=== PATIENT | male | born 1945 | race Caucasian/White ===

== ENCOUNTER → 2024-02-16 | Outpatient (CLI) | payer MEDICARE, SELFPAY ==
[2024-02-16 12:27] LABS: Basophils % (Auto) 0 % (0-2.5); Eosinophils % (Auto) 0 % (0-10); Hematocrit 36.5 % (41.0-53.0); Hemoglobin 12.4 g/dL (13.5-16.0); Immature Granulocytes % (Auto) 0 % (0-0); Immature Granulocytes Auto 0.02 Thou/mm3 (0.00-0.00); Lymphocytes # (Auto) 0.8 Thou/mm3 (1.0-4.8); Lymphocytes % (Auto) 11 % (10-50); Mean Corpuscular Hemoglobin 30.9 pg (25.0-35.0); Mean Corpuscular Volume 91 fL (80-100); Monocytes # (Auto) 0.3 Thou/mm3 (0.0-0.8); Monocytes % (Auto) 4 % (0-12); Neutrophils # (Auto) 5.8 Thou/mm3 (1.8-7.7); Neutrophils % (Auto) 84 % (37-80); Nucleated Red Blood Cell % 0 /100 WBC (0); Platelet Count 155 Thou/mm3 (140-440); RDW Standard Deviation 48.3 fL (35.1-43.9); Red Blood Count 4.01 Miln/mm3 (4.50-5.90); White Blood Count 6.9 Thou/mm3 (3.8-10.6)
[2024-02-16 12:38] LABS: Glucose Estimated Average 140 mg/dL (80-131); Hemoglobin A1C 6.5 % Hgb (4.8-6.0)
[2024-02-16 12:41] LABS: Alanine Aminotransferase 277 U/L (10-49); Alkaline Phosphatase 240 U/L (46-116); Anion Gap 6 (7-16); Aspartate Amino Transferase 50 U/L (0-34); BUN/Creatinine Ratio 17 Ratio (12-20); Bilirubin,Direct 0.6 mg/dL (0.0-0.3); Blood Urea Nitrogen 24 mg/dL (9-23); Calcium 8.9 mg/dL (8.3-10.6); Carbon Dioxide 25.9 mMol/L (20.0-31.0); Cardiac Risk Estimate 4.3 RATIO (4.0-6.7); Chloride 105 mMol/L (98-107); Cholesterol 137 mg/dL (132-200); Creatinine (Component) 1.4 mg/dL (0.6-1.3); Glucose 209 mg/dL (74-106); HDL Cholesterol 32 mg/dL (40-60); LDL Cholesterol,Calculated 73 mg/dL (0-130); Osmolality,Calculated 283 (275-295); Potassium 4.7 mMol/L (3.4-5.1); Sodium 137 mMol/L (136-145); Total Protein 6.3 gm/dL (5.7-8.2); Triglycerides 162 mg/dL (30-150); eGFR 51 See Note
[2024-02-16 13:12] LABS: Creatinine MALB Rnd Ur 96 mg/dL (30-125); Microalbumin Creat Ratio 41 mg/gCrea (<30); Microalbumin, Random Urine 39 mg/L (0-300)
== END | disposition home or self-care (01) ==
PROVIDERS: PCP Family Medicine; Referring Provider Family Medicine; Visit Provider Family Medicine
DX: I10 Essential (primary) hypertension (principal); E11.65 Type 2 diabetes mellitus with hyperglycemia; M19.90 Unspecified osteoarthritis, unspecified site; E78.5 Hyperlipidemia, unspecified
CPT/HCPCS: 36415; 80048; 80061; 80076; 82043; 82570; 83036; 85025

== ENCOUNTER → 2024-03-28 | Outpatient (CLI) | payer MEDICARE, SELFPAY ==
--- NOTE | 2024-03-28 11:45 | XR_ITS ---
Examination: Abdomen sonogram, complete Date and time of exam: March 28, 2024 1021 hours INDICATIONS: Elevated liver function tests on laboratory examination performed one month ago. Technique: Multiple real-time grayscale transabdominal sonographic images of the abdomen have been obtained. Findings: Negative for gallstones Gallbladder wall thickened 0.5 cm Abnormally enlarged common bile duct 0.9 cm no stones Pancreatic head 2.1 cm Aorta not enlarged Liver 16.5 cm fatty infiltration smooth contour no focal liver lesions Normal hepatopedal portal venous flow Patent IVC Right kidney 11.7 x 5.4 x 5.2 cm cortex 1.3 cm Left kidney 10.5 x 4.2 x 4.5 cm cortex 1.8 cm Mild bilateral renal parenchymal scar formation Lower pole left renal calculus 9 mm No hydronephrosis Spleen 8.5 cm IMPRESSION: Abnormal thickening of the gallbladder wall with enlarged common bile duct Recommend MRCP follow-up to exclude stricture involving the common bile duct and to exclude cholecystitis 9 mm left renal calculus
== END | disposition home or self-care (01) ==
LOC: CDIM 09:59
PROVIDERS: PCP Family Medicine; Referring Provider Family Medicine; Visit Provider Family Medicine
DX: K82.8 Other specified diseases of gallbladder (principal); N20.0 Calculus of kidney; K83.8 Other specified diseases of biliary tract
CPT/HCPCS: 76700

== ENCOUNTER 2024-04-06 07:58 | Inpatient (IN) | payer MEDICARE, SELFPAY ==
[2024-04-06] VITALS (130 sets, daily range): BP systolic 53–183; BP diastolic 35–106; PULSE 57–112; RESP 0–38; TEMP 36.2–37.7; O2SAT 77–100; BMI 23.1
--- NOTE | 2024-04-06 08:00 | PC.NURSE ---
Patient brought in by son via private auto. Pt sitting in car AMS, lethargic. Pt was assisted to wheelchair by multiple nurses and taken directly to room 1. Per son at 0430 pt was up hallucinating thinking he was seeing cats. It progressively got worse according to son then he brought him here. 02 sats at 68% on RA. Placed on 15L oxymask at this time. Pt getting anxious. MD and multiple nurses at bedside. RT called.
--- NOTE | 2024-04-06 08:17 | XR_ITS ---
Examination: AP chest single view Technique one AP portable upright chest single view Exam date and time: April 06, 2024 at 0848 hrs. Indications: Sepsis today Findings: Comparison July 30, 2018 Findings: Extensive bilateral pneumonia Normal heart size Prominent osteopenia Impression: Extensive bilateral pneumonia
--- NOTE | 2024-04-06 08:17 | EKG_ITS ---
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
--- NOTE | 2024-04-06 08:19 | PC.NURSE ---
PATIENT PLACED ON BIPAP BY RT AT THIS TIME
[2024-04-06] MEDS: SODIUM CHLORIDE 0.9% 500 ML 500 ML 999 ML IV (08:20)
[2024-04-06] MEDS: MethylPREDNISolone SOD SUCC 62.5 MG/ML 2ML VIAL 125 MG IVP (08:27)
[2024-04-06 08:33] LABS: Base Excess -7 (-3-3); HCO3 21 mEq/L (20-26); Inspired O2, VO2 Liters 5 L/min; Inspired Oxygen, FIO2 83 %; O2 Saturation 83 % (91-98); PCO2 50 mmHg (32.0-48.0); pH, Arterial 7.24 (7.35-7.45)
[2024-04-06 08:40] LABS: Basophils % (Auto) 0 % (0-2.5); Eosinophils % (Auto) 0 % (0-10); Hematocrit 42.5 % (41.0-53.0); Hemoglobin 14.4 g/dL (13.5-16.0); Immature Granulocytes % (Auto) 1 % (0-0); Immature Granulocytes Auto 0.01 Thou/mm3 (0.00-0.00); Lymphocytes # (Auto) 0.4 Thou/mm3 (1.0-4.8); Lymphocytes % (Auto) 30 % (10-50); Mean Corpuscular HGB Conc 33.9 g/dl (31.0-37.0); Mean Corpuscular Hemoglobin 30.1 pg (25.0-35.0); Mean Corpuscular Volume 89 fL (80-100); Monocytes % (Auto) 2 % (0-12); Neutrophils # (Auto) 0.8 Thou/mm3 (1.8-7.7); Neutrophils % (Auto) 67 % (37-80); Nucleated Red Blood Cell % 0 /100 WBC (0); Platelet Count 86 Thou/mm3 (140-440); RDW Standard Deviation 47.7 fL (35.1-43.9); Red Blood Count 4.78 Miln/mm3 (4.50-5.90)
--- NOTE | 2024-04-06 08:44 | PD.EDADULT ---
ED General RME/HPI General Chief complaint: General Adult/Misc Complain Stated complaint: HALLUCINATING AND LOW BP Time Seen by Provider: 04/06/24 08:33 Arrival date/time: 04/06/24 07:58 RME / HPI RME / HPI narrative: Patient is a 78 years old male with PMH of COPD, active smoker 1 pk/day, HTN, HLD, DM2 was brought to the ED by his son due to worsening respiration and AMS. On arrival he is obtund, does not respond to any questions. His oxygen saturation was 60% on RA and he was placed on oxymask. He was also hypotensive, tachycardic and tachypneic. His son reported that earlier this morning patient woke up and was hallucinating. He tried to feed him but patient became unresponsive and he brought him to the ED. He also reported that patient had symptoms of URI for the last several days and was managed with tylenol and supportive treatment. Yesterday patient developed significant diarrhea and polyuria. Related Data Home Medications ?Medication ?Instructions ?Recorded ?Confirmed ramipril 10 mg capsule 20 mg PO QDAY 07/30/18 04/06/24 atorvastatin 20 mg tablet 20 mg PO QDAY 04/06/24 04/06/24 celecoxib 100 mg capsule 100 mg PO Q24H 04/06/24 04/06/24 Previous Rx's ?Medication ?Instructions ?Recorded pantoprazole 40 mg tablet,delayed 40 mg PO QDAY #30 tabs 08/01/18 release metformin 850 mg tablet 850 mg PO DAILY #0 tabs 10/12/18 Allergies Allergy/AdvReac Type Severity Reaction Status Date / Time clonidine Allergy Verified 04/06/24 08:00 Review of Systems Review of Systems Systems Reviewed: All systems reviewed, normal except as documented ED Exam Narrative Physical exam: Gen: Well-developed and well-nourished elderly male. HEENT: NCAT, PERRLA, MMM, anicteric conjunctivae. CVS: normal S1 and S2. Regular tachycardia. No M/R/G. Resp: decreased B/L. No rhonchi, rales, crackles or wheezing. Rapid shallow breathing with use of accessory muscles. Abd: soft, non-tender, non-distended. BS+ in all 4 quadrants. MSK: Good ROM in BUE & BLE. No edema or rash. Skin color is agarwal-blue, mostly his neck and face. Neuro: patient is obtuned, limited exam. Course Course Course Narrative: Patient presented obtund, MAP of 54 and saturation in low 60s, his breathing is rapid and shallow, skin color is agrawal. He was immediately placed on oxymask and his oxygen has improved to low 80s and he became more agitated an alert. He was then placed on BiPAP and saturation improved to low 90s however he remained tachypnic with use of accesory muscles. His mental status significantly improved and he was communication and answering simple questions. Quality Measures none Orders Category Date Time Status Bedside Blood Glucose NOW Care 04/06/24 08:17 Completed Bedside COVID-19 Antigen Test NOW Care 04/06/24 09:41 Completed COVID-19 Screening Questionnaire NOW Care 04/06/24 09:[address] Screening NOW Care 04/06/24 08:55 Completed Decision to Admit X1 Care 04/06/24 09:29 Completed Insert IV NOW Care 04/06/24 08:17 Completed XR chest 1V SEPSIS PROTOCOL Stat Exams 04/06/24 08:17 Completed ABG [Arterial Blood Gas] Stat Lab 04/06/24 08:20 Completed ABG [Arterial Blood Gas] Stat Lab 04/06/24 10:53 Completed BNP [B-Type Natriuretic Peptide] Stat Lab 04/06/24 08:10 Completed Blood Culture (Lab) Stat Lab 04/06/24 08:20 Results CBC Stat Lab 04/06/24 08:10 Completed Comprehensive Metabolic Panel Stat Lab 04/06/24 08:10 Completed Lactate (Lactic Acid) Stat Lab 04/06/24 08:10 Completed Lactic Acid [Lactate (Lactic Acid)] Stat Lab 04/06/24 10:38 Completed Partial Thromboplastin Time Stat Lab 04/06/24 08:10 [address] Review Blood Smear Stat Lab 04/06/24 08:10 Completed Procalcitonin Stat Lab 04/06/24 08:10 Completed Prothrombin Time with INR Stat Lab 04/06/24 08:10 Completed Troponin I Stat Lab 04/06/24 08:10 Completed Troponin I Stat Lab 04/06/24 10:38 Completed Urinalysis Stat Lab 04/06/24 08:45 Completed Urine Culture Stat Lab 04/06/24 08:48 Received ALBUTEROL RT 0.5ml [Proventil Rt 0.5ml] Med 04/06/24 08:47 Discontinued 10 mg INH X1 ONE Azithromycin Inj [Zithromax Inj] 500 mg Med 04/06/24 08:53 Discontinued Sodium Chloride 0.9% 250 ml [Ns] 250 ml IV X1 Dexmedetomidine 400 Mcg Ivpb [Precedex Ivpb] Med 04/06/24 10:25 Discontinued 400 mcg in 100 ml IV 0.2 mcg/kg/hr Ipratropium [place] Rt Saida [Atrovent Rt Saida] Med 04/06/24 08:47 Discontinued 1 mg INH X1 ONE Magnesium Sulfate 2 GM Ivpb [Magnesium Sulfate Ivpb] Med 04/06/24 10:25 Discontinued 2 gm in 50 ml IV X1 MethylPREDNISolone.* [SoluMEDROL Inj] Med 04/06/24 08:23 Discontinued 125 mg IVP X1 ONE Sodium Chloride 0.9% 1000 ml [Ns] 1,000 ml Med 04/06/24 08:57 Discontinued IV 999 mls/hr Sodium Chloride 0.9% 500 ml [Ns] 500 ml Med 04/06/24 08:24 Discontinued IV 999 mls/hr Sodium Chloride Rt Saida 0.9% [NS Rt Saida 0.9%] Med 04/06/24 08:47 Discontinued 3 ml INH PRN PRN cefTRIAXone [Rocephin] 2 gm Med 04/06/24 08:53 Discontinued SODIUM CHLORIDE 0.9% (Popper) [NS 0.9% (Popper)] 50 ml IV X1 EKG (RT) Stat RT 04/06/24 08:17 Draft Oxygen Delivery NOW RT 04/06/24 08:17 Completed Patient was given IVF due to low BP, total 1.5L of NS. He was also given ceftriaxone 2 g and azithromycin 500 mg IV for possible PNA. Given history of COPD and active smoking status given methylprednisolone 125 mg IV. After he was placed on BiPAP breathing treatment was initiated with albuterol and ipratropium. 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 Prior history of [place] fever with subsequent lung scarring. How is presenting disease/condition affected by chronic disease/condition?: exacerbated by Evaluation data The following diagnostics were reviewed and interpreted by me:: lab results, radiology exam(s) and EKG tracing(s) Lab and/or radiology exams considered but not ordered:: echo, brain CT Interpretation Summary: Findings consistent with COPD exacerbation, pneumonia and sepsis. Medications Medications considered but not ordered:: aspirin, pressors Medication administrations:: Medication Administration History Discontinued Medications Acetaminophen (Acetaminophen 325 Mg Tablet) 650 mg PO Q6H PRN PRN Reason: Pain 1-3 or Fever >100.3 Stop: 05/06/24 10:33 Albuterol (Albuterol Rt 2.5 Mg/0.5 Ml Nebu) 10 mg INH X1 ONE Stop: 04/06/24 08:48 Last Admin: 04/06/24 09:14 Dose: 10 mg Documented By: MARCK Albuterol (Albuterol Rt 2.5 Mg/0.5 Ml Nebu) 15 mg INH X1 ONE Stop: 04/06/24 10:35 Last Admin: 04/06/24 10:38 Dose: 15 mg Documented By: MARCK Atorvastatin Calcium (Atorvastatin Calcium 20 Mg Tablet) 20 mg PO HS [facility] Stop: 05/06/24 20:59 Last Admin: 04/06/24 22:00 Dose: 20 mg Documented By: ANDREA Atropine Sulfate (Atropine Sulf Inj 0.4 Mg/Ml Vial) 0.2 mg IV X1 ONE Stop: 04/06/24 18:53 Last Admin: 04/06/24 18:16 Dose: 0.2 mg Documented By: RYAN Calcium Carbonate (Calcium Carbonate 600 Mg Tablet) 600 mg GT TID RADHA Stop: 05/07/24 03:59 Last Admin: 04/07/24 04:08 Dose: 600 mg Documented By: ANDREA Calcium Gluconate (Calcium Gluconate 10% Inj 1 Gm/10 Ml Vial) 1 gm IV X1 ONE Stop: 04/07/24 01:49 Last Admin: 04/07/24 02:00 Dose: 1 gm Documented By: Calcium Gluconate (Calcium Gluconate 10% Inj 1 Gm/10 Ml Vial) Confirm Administered Dose 1 gm .ROUTE .STK-MED ONE Stop: 04/07/24 01:45 Last Admin: 04/07/24 02:01 Dose: Not Given Documented By: Non-Admin Reason: stock med Calcium Gluconate (Calcium Gluconate 10% Inj 1 Gm/10 Ml Vial) 1 gm IV X1 ONE Stop: 04/07/24 04:11 Last Admin: 04/07/24 04:14 Dose: 1 gm Documented By: ANDREA Dextrose (Dextrose 50%-Water Inj 50 Ml Syringe) 50 ml IV X1 ONE Stop: 04/07/24 01:49 Last Admin: 04/07/24 01:56 Dose: 50 ml Documented By: Dextrose (Dextrose 50%-Water Inj 50 Ml Syringe) Confirm Administered Dose 50 ml IV .STK-MED ONE Stop: 04/07/24 01:44 Last Admin: 04/07/24 02:01 Dose: Not Given Documented By: Non-Admin Reason: stock med Dextrose (Dextrose 50%-Water Inj 50 Ml Syringe) 50 ml IV X1 ONE Stop: 04/07/24 03:57 Last Admin: 04/07/24 04:09 Dose: 50 ml Documented By: ANDREA Dextrose (Dextrose 50%-Water Inj 50 Ml Syringe) 50 ml IV X1 ONE Stop: 04/07/24 04:20 Last Admin: 04/07/24 04:14 Dose: 50 ml Documented By: ANDREA Epinephrine HCl (Epinephrine Inj 0.1 Mg/Ml Syringe 10ml) 1 mg IV X1 ONE Stop: 04/06/24 11:59 Last Admin: 04/06/24 12:00 Dose: 1 mg Documented By: ROSARIO Comments: medication administered by Dr. Basil leyva in increments of micrograms. total of 130 micrograms given. Epinephrine HCl (Epinephrine Inj 0.1 Mg/Ml Syringe 10ml) Confirm Administered Dose 1 mg .ROUTE .STK-MED ONE Stop: 04/06/24 11:56 Last Admin: 04/06/24 12:12 Dose: Not Given Documented By: ROSARIO Non-Admin Reason: Duplicate Medication on eMAR Fentanyl Citrate (Fentanyl Cit Inj 50 Mcg/Ml Amp 2ml) 75 mcg IVP X1 ONE Stop: 04/06/24 11:43 Last Admin: 04/06/24 11:53 Dose: 75 mcg Documented By: ROSARIO Fentanyl Citrate (Fentanyl Cit Inj 50 Mcg/Ml Amp 2ml) Confirm Administered Dose 100 mcg .ROUTE .STK-MED ONE Stop: 04/06/24 11:45 Last Admin: 04/06/24 11:59 Dose: Not Given Documented By: ROSARIO Non-Admin Reason: Duplicate Medication on eMAR Glycopyrrolate (Glycopyrrolate Inj 0.2 Mg/Ml Vial) 0.2 mg IV QID PRN PRN Reason: As needed for secretions Stop: 05/07/24 05:45 Sodium Chloride (Ns) 500 mls @ 999 mls/hr IV .Q31M ONE Stop: 04/06/24 08:54 Last Infusion: 04/06/24 08:55 Dose: Infused Documented By: Admin: 04/06/24 08:20 Dose: 999 mls/hr Documented By: Ceftriaxone Sodium 2 gm/ (Sodium Chloride) 50 mls @ 100 mls/hr IV X1 ONE Stop: 04/06/24 09:22 Last Infusion: 04/06/24 09:29 Dose: Infused Documented By: Admin: 04/06/24 08:57 Dose: 100 mls/hr Documented By: ROSARIO Azithromycin 500 mg/ Sodium (Chloride) 250 mls @ 250 mls/hr IV X1 ONE Stop: 04/06/24 09:52 Last Infusion: 04/06/24 10:21 Dose: Infused Documented By: Admin: 04/06/24 09:20 Dose: 250 mls/hr Documented By: ROSARIO Sodium Chloride (Ns) 1,000 mls @ 999 mls/hr IV .Q1H1M ONE Stop: 04/06/24 09:57 Last Infusion: 04/06/24 10:11 Dose: Infused Documented By: Admin: 04/06/24 08:59 Dose: 999 mls/hr Documented By: ROSARIO Magnesium Sulfate (Magnesium Sulfate Ivpb) 2 gm in 50 mls @ 25 mls/hr IV X1 ONE Stop: 04/06/24 12:24 Last Infusion: 04/06/24 12:01 Dose: Infused Documented By: Admin: 04/06/24 10:33 Dose: 25 mls/hr Documented By: ROSARIO Dexmedetomidine/Sodium Chloride (Precedex Ivpb) 400 mcg in 100 mls @ 4.082 mls/hr IV .Q24H PRN; Protocol PRN Reason: Per PROTOCOL Stop: 05/06/24 10:24 Dexmedetomidine/Sodium Chloride (Precedex Ivpb) 200 mcg in 50 mls @ 4.082 mls/hr IV .[id number] PRN; Protocol PRN Reason: Per PROTOCOL Stop: 05/06/24 10:35 Last Titration: 04/06/24 12:10 Dose: 0 mcg/kg/hr, 0 mls/hr Documented By: Admin: 04/06/24 10:53 Dose: 0.2 mcg/kg/hr, 4.082 mls/hr Documented By: ROSARIO Co-signed By: DB Ceftriaxone Sodium 1,000 mg/ (Sodium Chloride) 50 mls @ 100 mls/hr IV QDAY RADHA Stop: 04/14/24 08:59 Azithromycin 250 mg/ Sodium (Chloride) 250 mls @ 250 mls/hr IV QDAY RADHA Stop: 04/14/24 08:59 Propofol (Diprivan Ivpb) 1,000 mg in 100 mls @ 2.449 mls/hr IV .Q24H PRN; Protocol PRN Reason: PER PROTOCOL Stop: 05/06/24 11:43 Fentanyl Citrate (Sublimaze Inj 2,500 Mcg/250 Ml Bag) 2,500 mcg in 250 mls @ 2.5 mls/hr IV .Q24H PRN; Protocol PRN Reason: PER PROTOCOL Stop: 04/11/24 11:43 Last Titration: 04/07/24 00:30 Dose: 0 mcg/hr, 0 mls/hr Documented By: Titration: 04/07/24 00:00 Dose: 25 mcg/hr, 2.5 mls/hr Documented By: Titration: 04/06/24 23:00 Dose: 25 mcg/hr, 2.5 mls/hr Documented By: Titration: 04/06/24 22:00 Dose: 25 mcg/hr, 2.5 mls/hr Documented By: Titration: 04/06/24 21:00 Dose: 25 mcg/hr, 2.5 mls/hr Documented By: Titration: 04/06/24 20:00 Dose: 25 mcg/hr, 2.5 mls/hr Documented By: Titration: 04/06/24 19:00 Dose: 25 mcg/hr, 2.5 mls/hr Documented By: Titration: 04/06/24 18:00 Dose: 25 mcg/hr, 2.5 mls/hr Documented By: Titration: 04/06/24 17:00 Dose: 25 mcg/hr, 2.5 mls/hr Documented By: Titration: 04/06/24 16:00 Dose: 25 mcg/hr, 2.5 mls/hr Documented By: Titration: 04/06/24 15:00 Dose: 25 mcg/hr, 2.5 mls/hr Documented By: Admin: 04/06/24 12:10 Dose: 25 mcg/hr, 2.5 mls/hr Documented By: ROSARIO Co-signed By: CHRISTINE Fentanyl Citrate (Sublimaze Inj 2,500 Mcg/250 Ml Bag) Confirm Administered Dose 2,500 mcg in 250 mls @ ud IV .STK-MED ONE Stop: 04/06/24 11:47 Last Admin: 04/06/24 12:01 Dose: Not Given Documented By: ROSARIO Non-Admin Reason: Duplicate Medication on eMAR Norepinephrine/Dextrose (Levophed In D5w 8mg/250ml) 8 mg in 250 mls @ 7.654 mls/hr IV .Q24H PRN; Protocol PRN Reason: PER PROTOCOL Stop: 05/06/24 11:57 Last Titration: 04/07/24 06:15 Dose: 0 mcg/kg/min, 0 mls/hr Documented By: Titration: 04/07/24 06:00 Dose: 0.2 mcg/kg/min, 30.618 mls/hr Documented By: Titration: 04/07/24 05:00 Dose: 0.2 mcg/kg/min, 30.618 mls/hr Documented By: Titration: 04/07/24 04:00 Dose: 0.2 mcg/kg/min, 30.618 mls/hr Documented By: Titration: 04/07/24 03:00 Dose: 0.2 mcg/kg/min, 30.618 mls/hr Documented By: Titration: 04/07/24 02:05 Dose: 0.2 mcg/kg/min, 30.618 mls/hr Documented By: Titration: 04/07/24 02:00 Dose: 0.22 mcg/kg/min, 33.679 mls/hr Documented By: Admin: 04/07/24 01:48 Dose: 0.24 mcg/kg/min, 36.741 mls/hr Documented By: Titration: 04/07/24 01:48 Dose: Infused Documented By: Titration: 04/07/24 01:00 Dose: 0.2 mcg/kg/min, 30.618 mls/hr Documented By: Titration: 04/07/24 00:00 Dose: 0.2 mcg/kg/min, 30.618 mls/hr Documented By: Titration: 04/06/24 23:20 Dose: 0.2 mcg/kg/min, 30.618 mls/hr Documented By: Titration: 04/06/24 23:14 Dose: 0.22 mcg/kg/min, 33.679 mls/hr Documented By: Titration: 04/06/24 23:08 Dose: 0.3 mcg/kg/min, 45.926 mls/hr Documented By: Titration: 04/06/24 23:00 Dose: 0.2 mcg/kg/min, 30.618 mls/hr Documented By: Titration: 04/06/24 22:30 Dose: 0.2 mcg/kg/min, 30.618 mls/hr Documented By: Titration: 04/06/24 22:00 Dose: 0.22 mcg/kg/min, 33.679 mls/hr Documented By: Titration: 04/06/24 21:00 Dose: 0.22 mcg/kg/min, 33.679 mls/hr Documented By: Titration: 04/06/24 20:45 Dose: 0.22 mcg/kg/min, 33.679 mls/hr Documented By: Titration: 04/06/24 20:30 Dose: 0.24 mcg/kg/min, 36.741 mls/hr Documented By: Titration: 04/06/24 20:00 Dose: 0.26 mcg/kg/min, 39.803 mls/hr Documented By: Titration: 04/06/24 19:30 Dose: 0.28 mcg/kg/min, 42.865 mls/hr Documented By: Titration: 04/06/24 19:00 Dose: 0.3 mcg/kg/min, 45.926 mls/hr Documented By: Admin: 04/06/24 18:43 Dose: 0.3 mcg/kg/min, 45.926 mls/hr Documented By: Titration: 04/06/24 18:29 Dose: Infused Documented By: Titration: 04/06/24 18:18 Dose: 0.3 mcg/kg/min, 45.926 mls/hr Documented By: Titration: 04/06/24 18:16 Dose: 0.4 mcg/kg/min, 61.235 mls/hr Documented By: Titration: 04/06/24 17:06 Dose: 0.14 mcg/kg/min, 21.432 mls/hr Documented By: Titration: 04/06/24 17:01 Dose: 0.16 mcg/kg/min, 24.494 mls/hr Documented By: Titration: 04/06/24 16:52 Dose: 0.18 mcg/kg/min, 27.556 mls/hr Documented By: Titration: 04/06/24 16:25 Dose: 0.2 mcg/kg/min, 30.618 mls/hr Documented By: Titration: 04/06/24 16:15 Dose: 0.22 mcg/kg/min, 33.679 mls/hr Documented By: Titration: 04/06/24 16:00 Dose: 0.24 mcg/kg/min, 36.741 mls/hr Documented By: Titration: 04/06/24 15:45 Dose: 0.26 mcg/kg/min, 39.803 mls/hr Documented By: Titration: 04/06/24 15:30 Dose: 0.28 mcg/kg/min, 42.865 mls/hr Documented By: Titration: 04/06/24 15:00 Dose: 0.3 mcg/kg/min, 45.926 mls/hr Documented By: Titration: 04/06/24 13:16 Dose: 0.3 mcg/kg/min, 45.926 mls/hr Documented By: Titration: 04/06/24 12:37 Dose: 0.4 mcg/kg/min, 61.235 mls/hr Documented By: Titration: 04/06/24 12:22 Dose: 0.3 mcg/kg/min, 45.926 mls/hr Documented By: Titration: 04/06/24 12:12 Dose: 0.2 mcg/kg/min, 30.618 mls/hr Documented By: Admin: 04/06/24 12:05 Dose: 0.05 mcg/kg/min, 7.654 mls/hr Documented By: ROSARIO Lactated Ringer's (Lactated Ringers) 1,000 mls @ 999 mls/hr IV .Q1H1M ONE Stop: 04/06/24 13:29 Last Infusion: 04/06/24 13:24 Dose: Infused Documented By: Admin: 04/06/24 12:42 Dose: 999 mls/hr Documented By: ROSARIO Vasopressin/Sodium Chloride (Vasostrict/Ns Ivpb) 20 unit in 100 mls @ 9 mls/hr IV .Q11H7M PRN; Protocol PRN Reason: PER PROTOCOL Stop: 05/06/24 12:33 Last Titration: 04/07/24 06:15 Dose: 0 unit/min, 0 mls/hr Documented By: Admin: 04/06/24 23:08 Dose: 0.03 unit/min, 9 mls/hr Documented By: Titration: 04/06/24 23:08 Dose: Infused Documented By: Admin: 04/06/24 12:40 Dose: 0.03 unit/min, 9 mls/hr Documented By: ROSARIO Sodium Bicarbonate 88.23 meq/ (Dextrose) 588.23 mls @ 100 mls/hr IV .Q5H53M [facility] Stop: 05/06/24 18:06 Last Infusion: 04/07/24 06:15 Dose: 0 mls/hr Documented By: Infusion: 04/07/24 04:35 Dose: 150 mls/hr Documented By: Admin: 04/07/24 01:45 Dose: 100 mls/hr Documented By: Infusion: 04/07/24 01:45 Dose: Infused Documented By: Admin: 04/06/24 18:43 Dose: 100 mls/hr Documented By: THERON Piperacillin Sod/Tazobactam (Sod 3.375 gm/ Sodium Chloride) 50 mls @ 12.5 mls/hr IV Q12HR [facility] Stop: 04/14/24 08:59 Piperacillin Sod/Tazobactam (Sod 3.375 gm/ Sodium Chloride) 50 mls @ 100 mls/hr IV X1 ONE Stop: 04/06/24 18:44 Last Infusion: 04/06/24 23:43 Dose: Infused Documented By: Admin: 04/06/24 18:32 Dose: 100 mls/hr Documented By: THERON Vancomycin HCl (Vancomycin/Water 1250 Mg Ivpb) 250 mls @ 120 mls/hr IV X1 ONE Stop: 04/06/24 20:34 Last Infusion: 04/06/24 21:00 Dose: Infused Documented By: Admin: 04/06/24 18:44 Dose: 120 mls/hr Documented By: THERON Calcium Gluconate/Sodium Chloride (Calcium Gluc/Ns 1000mg Ivpb) 1,000 mg in 50 mls @ 50 mls/hr IV X1 ONE Stop: 04/07/24 04:29 Last Admin: 04/07/24 06:06 Dose: Not Given Documented By: ANDREA Non-Admin Reason: Cancelled by Provider Sodium Bicarbonate 88.23 meq/ (Dextrose) 588.23 mls @ 150 mls/hr IV .Q3H56M [facility] Stop: 05/07/24 04:34 Last Admin: 04/07/24 06:06 Dose: Not Given Documented By: ANDREA Non-Admin Reason: Discontinued Morphine Sulfate (Morphine Sulfate Iv Drip 100mg/100ml) 100 mls @ 1 mls/hr IV .Q24H PRN; Protocol PRN Reason: PAIN (COMFORT CARE) Stop: 04/12/24 05:45 Insulin Human Regular (Insulin Hum Regular 1 Unit/0.01 Ml (Per Unit)) 5 unit IV X1 ONE Stop: 04/07/24 01:49 Last Admin: 04/07/24 01:56 Dose: 5 unit Documented By: Co-signed By: ANDREA Comments: d50 given prior to insulin IV push Insulin Human Regular (Insulin Hum Regular 1 Unit/0.01 Ml (Per Unit)) Confirm Administered Dose 5 unit .ROUTE .STK-MED ONE Stop: 04/07/24 01:46 Last Admin: 04/07/24 02:02 Dose: Not Given Documented By: Non-Admin Reason: Duplicate Medication on eMAR Insulin Human Regular (Insulin Hum Regular 1 Unit/0.01 Ml (Per Unit)) 5 unit IV X1 ONE Stop: 04/07/24 03:57 Last Admin: 04/07/24 04:22 Dose: 5 unit Documented By: ANDREA Co-signed By: FAINA Ipratropium [place] (Ipratropium Rt 0.5 Mg/ 2.5 Ml Nebu) 1 mg INH X1 ONE Stop: 04/06/24 08:48 Last Admin: 04/06/24 09:14 Dose: 1 mg Documented By: MARCK Ipratropium [place] (Ipratropium Rt 0.5 Mg/ 2.5 Ml Nebu) 0.5 mg INH Q4HR PRN PRN Reason: SHORTNESS OF BREATH OR WHEEZE Stop: 05/06/24 15:08 Ketamine HCl (Ketamine 50 Mg/Ml Vial 10 Ml) 100 mg IVP X1 ONE Stop: 04/06/24 11:43 Last Admin: 04/06/24 11:57 Dose: 100 mg Documented By: ROSARIO Ketamine HCl (Ketamine 50 Mg/Ml Vial 10 Ml) Confirm Administered Dose 500 mg .ROUTE .STK-MED ONE Stop: 04/06/24 11:45 Last Admin: 04/06/24 12:00 Dose: Not Given Documented By: ROSARIO Non-Admin Reason: Duplicate Medication on eMAR Levalbuterol HCl (Levalbuterol Rt 1.25 Mg/0.5 Ml Nebu) 1.25 mg INH Q8HR PRN PRN Reason: WHEEZING Stop: 05/06/24 15:08 Lorazepam (Lorazepam 2 Mg/Ml Vial) 1 mg IVP Q1HR PRN PRN Reason: ANXIETY Stop: 04/12/24 05:45 Last Admin: 04/07/24 06:13 Dose: 1 mg Documented By: RH Methylprednisolone Sodium Succinate (Methylprednisolone Sod Succ 62.5 Mg/Ml 2ml Vial) 125 mg IVP X1 ONE Stop: 04/06/24 08:24 Last Admin: 04/06/24 08:27 Dose: 125 mg Documented By: LF Methylprednisolone Sodium Succinate (Methylprednisolone Sod Succ 40 Mg Vial) 40 mg IV QDAY RADHA Stop: 04/13/24 16:14 Last Admin: 04/06/24 16:26 Dose: 40 mg Documented By: THERON Midazolam HCl (Midazolam Inj 1 Mg/Ml Vial 2 Ml) 2 mg IV X1 ONE Stop: 04/06/24 12:09 Last Admin: 04/06/24 12:12 Dose: 2 mg Documented By: ROSARIO Midazolam HCl (Midazolam Inj 1 Mg/Ml Vial 2 Ml) Confirm Administered Dose 2 mg .ROUTE .STK-MED ONE Stop: 04/06/24 12:04 Last Admin: 04/06/24 12:20 Dose: Not Given Documented By: ROSARIO Non-Admin Reason: Duplicate Medication on eMAR Morphine Sulfate (Morphine Sulf Inj 10 Mg/Ml Vial) 2 mg IVP Q10M PRN PRN Reason: Pain or agitation Stop: 04/12/24 05:45 Last Admin: 04/07/24 06:12 Dose: 2 mg Documented By: Non-Formulary Medication (Lokelma) 10 gram NG TID RADHA Stop: 05/07/24 01:59 Last Admin: 04/07/24 02:07 Dose: Not Given Documented By: Non-Admin Reason: Medication Not Available Ondansetron HCl (Ondansetron Inj 2 Mg/Ml Inj 2 Ml) 4 mg IV Q6H PRN; Protocol PRN Reason: NAUSEA OR VOMITING Stop: 05/06/24 10:33 Pantoprazole Sodium (Pantoprazole Inj 40 Mg Vial) 40 mg IVP QDAY [facility] Stop: 05/06/24 10:44 Last Admin: 04/06/24 11:07 Dose: 40 mg Documented By: ROSARIO Pharmacy Consult (Pharmacy Renal Dose Adjustment 1 Ea) 1 each XX PRN PRN PRN Reason: CONSULT Stop: 05/06/24 18:08 Pharmacy Consult (Vancomycin Pharmacy To Dose 1 Each Each) 1 each IV QDAY PRN PRN Reason: PROTOCOL Stop: 05/06/24 18:14 Rocuronium [place] (Rocuronium Inj 10 Mg/Ml Vial 10 Ml) 100 mg IVP X1 ONE Stop: 04/06/24 11:53 Last Admin: 04/06/24 11:57 Dose: 100 mg Documented By: ROSARIO Co-signed By: CHRISTINE Rocuronium [place] (Rocuronium Inj 10 Mg/Ml Vial 10 Ml) Confirm Administered Dose 100 mg .ROUTE .STK-MED ONE Stop: 04/06/24 11:49 Last Admin: 04/06/24 12:02 Dose: Not Given Documented By: ROSARIO Non-Admin Reason: Duplicate Medication on eMAR Sennosides (Senna Tablet) 1 tab PO QDAY PRN; Protocol PRN Reason: constipation Stop: 05/06/24 10:33 Sevelamer Carbonate (Sevelamer Carbonate 800 Mg Tablet) 800 mg GT TIDWM [facility] Stop: 05/07/24 04:04 Last Admin: 04/07/24 04:29 Dose: 800 mg Documented By: ANDREA Sodium Bicarbonate (Sodium Bicarb Inj 8.4% Syr 50 Ml Syringe) 50 ml IV X1 ONE Stop: 04/06/24 23:09 Last Admin: 04/06/24 23:08 Dose: 50 ml Documented By: ANDREA Sodium Bicarbonate (Sodium Bicarb Inj 8.4% Syr 50 Ml Syringe) 50 ml IV X1 ONE Stop: 04/07/24 01:49 Last Admin: 04/07/24 02:00 Dose: 50 ml Documented By: Sodium Bicarbonate (Sodium Bicarb Inj 8.4% Syr 50 Ml Syringe) Confirm Administered Dose 50 ml IV .STK-MED ONE Stop: 04/07/24 01:45 Last Admin: 04/07/24 02:02 Dose: Not Given Documented By: Non-Admin Reason: Duplicate Medication on eMAR Sodium Bicarbonate (Sodium Bicarb Inj 8.4% 1 Meq/Ml Vial 50 Ml) 50 meq IV X1 ONE Stop: 04/07/24 03:57 Last Admin: 04/07/24 05:09 Dose: Not Given Documented By: ANDREA Non-Admin Reason: Discontinued Sodium Bicarbonate (Sodium Bicarb Inj 8.4% Syr 50 Ml Syringe) 50 ml IV X1 ONE Stop: 04/07/24 03:57 Last Admin: 04/07/24 04:02 Dose: 50 ml Documented By: ANDREA Sodium Chloride (Sodium Chloride Rt [place] 0.9% 3 Ml Nebu) 3 ml INH PRN PRN PRN Reason: SOLN Stop: 05/06/24 08:46 Last Admin: 04/06/24 10:39 Dose: 3 ml Documented By: MARCK Sodium Chloride (Sodium Chloride Rt [place] 0.9% 3 Ml Nebu) 3 ml INH PRN PRN PRN Reason: SOLN Stop: 05/06/24 10:32 Sodium Chloride (Sodium Chloride Rt 10% 15 Ml Nebu) 5 ml INH X1 ONE Stop: 04/06/24 10:35 Sodium Chloride (Sodium Chloride Rt [place] 0.9% 3 Ml Nebu) 3 ml INH PRN PRN PRN Reason: SOLN Stop: 05/06/24 15:08 Sodium Polystyrene Sulfonate (Sod Polystyrene Sulfon Susp 15 Gm/60 Ml Btl) 15 gm PO X1 ONE Stop: 04/07/24 01:49 Last Admin: 04/07/24 02:00 Dose: 15 gm Documented By: Sodium Polystyrene Sulfonate (Sod Polystyrene Sulfon Susp 15 Gm/60 Ml Btl) Confirm Administered Dose 15 gm .ROUTE .STK-MED ONE Stop: 04/07/24 01:45 Last Admin: 04/07/24 02:02 Dose: Not Given Documented By: Non-Admin Reason: stock med Ceftriaxone 2g and azithromycin 500mg x1 IV. Methylprednisolone 40 mg IV x1. Albuterol and ipratropium breathing treatment. Consultations Consultation(s) initiated? (list below): Yes Consultation #1 (Physician, Specialty, Details): Cardiology, Dr Mock. Troponinemia 2.5, EKG negative. NSTEMI type I vs II. Diagnosis Differential Diagnosis ED Complaint MDM: COPD exacerbation, CAP, CHF, STEMI, NSTEMI Most likely diagnosis given after review of the tests above:: Sepsis 2/2 PNA and COPD exacerbation Admission Indicated Admission indicated?: indicated Explain why admission is indicated or not indicated:: Patient needed higher level of care due to significant respiratory distress, tachypnea, hypoxia, likely due to COPD exacerbation and pneumonia. Admission Request Was there a request for admission?: Yes Admission Attestation Admission request attestation: Discussed case with Dr. Otero from ICU service regarding admission. Discussed patients ED course, exam findings, labs, and radiology results. The portable trackman agrees to accept the patient for admission. Disposition Plan Disposition Plan: Admit Medical Decision Making Differential Diagnosis Differential Diagnosis: COPD exacerbation, CAP, CHF, STEMI, NSTEMI Lab Data 04/07/24 03:12 04/07/24 03:12 Labs: Lab Results 04/06/24 04/06/24 04/06/24 Range/Units 08:10 08:20 08:45 WBC 1.2 L (3.8-10.6) Thou/mm3 RBC 4.78 (4.50-5.90) Miln/mm3 Hgb 14.4 (13.5-16.0) g/dL Hct 42.5 (41.0-53.0) % MCV 89 (80-100) fL MCH 30.1 (25.0-35.0) pg MCHC 33.9 (31.0-37.0) g/dl RDW Std Deviation 47.7 H (35.1-43.9) fL Plt Count 86 L (140-440) Thou/mm3 Neut % (Auto) 67 (37-80) % Lymph % (Auto) 30 (10-50) % [place] % (Auto) 2 (0-12) % Eos % (Auto) 0 (0-10) % Baso % (Auto) 0 (0-2.5) % Neut # (Auto) 0.8 L (1.8-7.7) Thou/mm3 Lymph # (Auto) 0.4 L (1.0-4.8) Thou/mm3 [place] # (Auto) 0.0 (0.0-0.8) Thou/mm3 Eos # (Auto) 0.0 (0.0-0.5) Thou/mm3 Baso # (Auto) 0.0 (0.0-0.2) Thou/mm3 Immature Gran # (Auto) 0.01 H (0.00-0.00) Thou/mm3 Absolute Nucleated RBC 0.00 (0.00-0.00) Thou/mm3 Immature Gran % 1 H (0-0) % Nucleated RBC % 0 (0) /100 WBC Smear Path Review Sent to Pathologist PT 12.0 (9.0-12.2) Seconds INR 1.1 (0.9-1.3) APTT 33.6 (22.0-36.0) Seconds Puncture Site Right Brachial ABG pH 7.24 L (7.35-7.45) ABG pCO2 50 H (32.0-48.0) mmHg ABG pO2 54 L* (83-108) mmHg ABG HCO3 21 (20-26) mEq/L ABG O2 Saturation 83 L (91-98) % ABG Base Excess -7 L (-3-3) Oxygen Liter Flow 5 L/min FiO2 83 % Sodium 133 L (136-145) mMol/L Potassium 4.7 (3.4-5.1) mMol/L Chloride 98 (98-107) mMol/L Carbon Dioxide 21.5 (20.0-31.0) mMol/L Anion Gap 14 (7-16) BUN 72 H (9-23) mg/dL Creatinine 4.4 H* (0.6-1.3) mg/dL Estim Creat Clear Calc 15.7 L (>60) mL/min eGFR 13 L* (60 - ) See Note BUN/Creatinine Ratio 16 (12-20) Ratio Glucose 85 (74-106) mg/dL Calculated Osmolality 286 (275-295) Lactic Acid 4.1 H* (0.4-2.0) mMol/L Calcium 8.7 (8.3-10.6) mg/dL Corrected Calcium 9.0 (8.5-10.1) mg/dL Total Bilirubin 0.4 (0.3-1.2) mg/dL AST 74 H (0-34) U/L ALT 91 H (10-49) U/L Alkaline Phosphatase 72 (46-116) U/L Troponin I 2.586 H* (0.0-0.045) ng/mL B-Natriuretic Peptide 235 H (0-100) pg/mL Total Protein 6.3 (5.7-8.2) gm/dL Albumin 3.6 (3.4-4.8) gm/dL Globulin 2.7 (2.3-3.5) gm/dL Albumin/Globulin Ratio 1.3 (1.2-2.2) Procalcitonin 224.67 H (0.0-0.49) ng/ml Ur Collection Type Catheter Urine Color Drk-Yellow A (Lt Yel-Yel) Urine Clarity Turbid A (Clear/Hazy) Urine pH 5.5 (5.0-7.0) Ur Specific [place] 1.024 (1.001-1.035) Urine Protein 2+ A (Neg - Trace) Urine Glucose (UA) Trace (Negative) Urine Ketones Negative (Negative) Urine Blood Trace (Negative) Urine Nitrite Negative (Negative) Urine Bilirubin Negative (Negative) Urine Urobilinogen (Auto) Negative (0.0-1.0) mg/dL Ur Leukocyte Esterase Negative (Negative) Urine RBC 1 (0-3) /hpf Urine WBC 4 (0-5) /hpf Ur Squamous Epith Cells 1 (0-5) /hpf Amorphous Crystals Present A (Absent) Urine Bacteria None (None) Discharge Plan Plan Patient Disposition: Admit Acute Care w/in Hospital Disposition Comment: ICU Problem List Clinical Impression: Sepsis, Community acquired pneumonia, COPD with acute exacerbation
[2024-04-06 08:45] LABS: Allen Test Not Performed; PO2 54 mmHg (83-108); Puncture Site Right Brachial
[2024-04-06 08:55] LABS: Lactate (Lactic Acid) 4.1 mMol/L (0.4-2.0)
[2024-04-06 08:56] LABS: Collection Type, Urine Catheter
[2024-04-06 08:57] LABS: INR 1.1 (0.9-1.3); Partial Thromboplastin Time 33.6 Seconds (22.0-36.0)
[2024-04-06] MEDS: cefTRIAXone 2 GM in SODIUM CHLORIDE 0.9% (Popper) 50 ML IV (08:57)
[2024-04-06] MEDS: SODIUM CHLORIDE 0.9% 1000 ML 1,000 ML 999 ML IV (08:59)
[2024-04-06 09:08] LABS: Alanine Aminotransferase 91 U/L (10-49); Albumin, Serum 3.6 gm/dL (3.4-4.8); Albumin/Globulin Ratio 1.3 (1.2-2.2); Alkaline Phosphatase 72 U/L (46-116); Anion Gap 14 (7-16); Aspartate Amino Transferase 74 U/L (0-34); BUN/Creatinine Ratio 16 Ratio (12-20); Bilirubin,Total 0.4 mg/dL (0.3-1.2); Blood Urea Nitrogen 72 mg/dL (9-23); Calcium 8.7 mg/dL (8.3-10.6); Carbon Dioxide 21.5 mMol/L (20.0-31.0); Chloride 98 mMol/L (98-107); Creatinine (Component) 4.4 mg/dL (0.6-1.3); Estimated Creatinine Clearance 15.7 mL/min (>60); Globulin 2.7 gm/dL (2.3-3.5); Glucose 85 mg/dL (74-106); Osmolality,Calculated 286 (275-295); Potassium 4.7 mMol/L (3.4-5.1); Sodium 133 mMol/L (136-145); Total Protein 6.3 gm/dL (5.7-8.2); eGFR 13 See Note
[2024-04-06 09:09] LABS: White Blood Count 1.2 Thou/mm3 (3.8-10.6)
[2024-04-06 09:10] LABS: Troponin I 2.586 ng/mL (0.0-0.045)
[2024-04-06] MEDS: ALBUTEROL RT 2.5 MG/0.5 ML NEBU 10 MG INH (09:14)
[2024-04-06] MEDS: IPRATROPIUM RT 0.5 MG/ 2.5 ML NEBU 1 MG INH (09:14)
[2024-04-06] MEDS: AZITHROMYCIN INJ 500 MG in SODIUM CHLORIDE 0.9% 250 ML 250 ML 250 MG IV (09:20)
[2024-04-06 09:29] LABS: Procalcitonin 224.67 ng/ml (0.0-0.49)
[2024-04-06 09:33] LABS: B-Type Natriuretic Peptide 235 pg/mL (0-100)
[2024-04-06 09:51] LABS: Amorphous Crystals,Urine Present (Absent); Bilirubin,Urine Negative (Negative); Blood,Urine Trace (Negative); Clarity,Urine Turbid (Clear/Hazy); Color,Urine Drk-Yellow (Lt Yel-Yel); Glucose, Urine Trace (Negative); Ketones,Urine Negative (Negative); Leukocyte Esterase,Urine Negative (Negative); Nitrite,Urine Negative (Negative); PH,Urine 5.5 (5.0-7.0); Protein,Urine 2+ (Neg - Trace); RBC,Urine 1 /hpf (0-3); Specific Gravity,Urine 1.024 (1.001-1.035); Squamous Epithelial Cell,Urine 1 /hpf (0-5); Urobilinogen,Urine Negative mg/dL (0.0-1.0); WBC,Urine 4 /hpf (0-5)
[2024-04-06] MEDS: Magnesium Sulfate 2 GM Ivpb 2 GM/50 ML BAG IV (10:33)
[2024-04-06] MEDS: ALBUTEROL RT 2.5 MG/0.5 ML NEBU 15 MG INH (10:38)
[2024-04-06] MEDS: SODIUM CHLORIDE RT SOL 0.9% 3 ML NEBU INH (10:39)
--- NOTE | 2024-04-06 10:41 | ESCONSULT_ITS ---
HPI Data of Consult Requesting Physician: Modesto Otero MD Admitting Provider: Modesto Otero MD Attending Provider: Modesto Otero MD Primary Care Provider: Shayan Lazaro MD Consult Narrative History of present illness: The patient evaluated bedside, accompanied by mother in the room, patient is a 78-year-old male, past medical history of peptic ulcer disease, remote history of GI bleed, undiagnosed COPD, active smoker, hypertension, hyperlipidemia and diabetes mellitus, who came into the ER following difficulty breathing and altered mental status, the patient was hypotensive on arrival, fluid bolus given, sepsis alert was called, due to acute hypoxic respiratory failure, patient was placed on BiPAP, chest x-ray showed significant bilateral pneumonia, patient's son is from [place], who recently came to visit, is not aware of past medical history, does not know if patient followed up with cardiology after 2019. Chart review shows patient was last seen in this hospital in 2019 for chest pain, was followed by ultrasonic seaming machine operator Dr. Post, coronary angiogram was done which showed nonocclusive coronary arteries, patient was eventually diagnosed with large bleeding duodenal ulcer and was followed with gastroenterology. Initial labs pertinent for severe leukopenia, ABG shows with lactic acidosis, metabolic acidosis acute renal failure, troponin elevation, already peaked at 2.5, now downtrending. Cardiology was consulted for elevated troponins. EKG showed sinus tachycardia versus multifocal atrial tachycardia, negative for acute ST changes. ICU was consulted due to increased work of breathing, plan for elective intubation and admission to ICU for further management. Past medical history: As noted above, duodenal ulcer, remote history of GI bleed, COPD, active smoker, hypertension, hyperlipidemia, diabetes mellitus. Past surgical history: Patient unable to provide history due to mental status and BiPAP, son present at bedside not aware of any pertinent surgeries. Home medications include celecoxib, atorvastatin, metformin, pantoprazole and ramipril. cc:: cc: Modesto Otero MD Review of Systems Review of Systems ROS Unobtainable: unobtainable due to mental status and unobtainable due to medical condition Past Medical History Past Medical History NEUROLOGIC: Negative Neurological Disorders, Cerebrovascular Accident, Transient Ischemic Attacks (TIA), Dementia, Alzheimer's Disease, Parkinson's Disease, Brain Tumor, Meningitis, Seizures, Epilepsy, Multiple Sclerosis, Cerebral Palsy, Amyotrophic Lateral Sclerosis (ALS/Gracia Gehrig's), Guillain-Liberty Syndrome, Spina Bifida, Paralysis, Peripheral Neuropathy, Palacios's Palsy, Subdural Hematoma, Migraine, Head Trauma, Spinal Cord Injury or Traumatic Brain Injury CARDIAC: Positive Myocardial Infarction (UNKNOWN WHEN OCCURED) and Hypertension; Negative Cardiac Disorders, Cardiac Arrhythmia, Atrial Fibrillation, Angina, Heart Murmur, Coronary Artery Disease, Atherosclerotic Heart Disease, Peripheral Vascular Disease, Hypercholesterolemia, Aneurysm, Congestive Heart Failure, Congenital Heart Disease, Valvular Heart Disease, Rheumatic Fever, Cardiomyopathy, Edema, Pericarditis, Cellulitis, Deep Vein Thrombosis, Hypotension or Varicose Veins RESPIRATORY: Positive Chronic Obstructive Pulmonary Disease (COPD) and Smoking (Chronic smoker since age 13.); Negative Asthma, Bronchitis, Emphysema, Pneumonia, Pulmonary Fibrosis, Cystic Fibrosis, Tuberculosis, Pulmonary Embolism, Pulmonary Edema or Sleep Apnea GASTROINTESTINAL: Positive Gastrointestinal Disorders, Hepatitis and Ulcer; Negative Cirrhosis, Pancreatitis, Celiac Disease, Gall Bladder Disease, Gastrointestinal Bleed, Esophageal Varices, Zhou's Esophagus, Colitis, Ulcerative Colitis, Diverticulitis, Diverticulosis, Colorectal Cancer, Irritable Bowel, Crohn's Disease, Obstructive Bowel, Hiatal Hernia, Hemorrhoids, Gastroesophageal Reflux Disease or Obesity GENITOURINARY: Negative Genitourinary Disorders, Renal Disease, Kidney Stones, Polycystic Kidney Disease, Neurogenic Bladder, Inguinal Hernia, Dialysis, Prostate Cancer or Benign Prostatic Hyperplasia REPRODUCTIVE: Negative Testicular Cancer MUSCULOSKELETAL: Positive Fractures (BROKEN FINGERS); Negative Musculoskeletal Disorders, Muscular Dystrophy, Myasthenia Gravis, Marfan's Syndrome, Bone Cancer, Arthritis, Rheumatoid Arthritis, Osteoporosis, Degenerative Disk Disease, Gout, Scoliosis, Carpal Tunnel Syndrome, Fibromyalgia, Degenerative Joint Disease, Osteomyelitis or Poliovirus ENT: Negative Cataracts, Glaucoma, Blind, Retinal Detachment, Macular Degeneration, Ear Infection, Deafness, Head Trauma or Eye Prosthesis ENDOCRINE: Positive Diabetes Mellitus Type 2; Negative Endocrine Disorders, Diabetes Mellitus Type 1, Hypoglycemia, Lux's Syndrome, [place]'s Disease, Hyperthyroidism, Hypothyroidism, Parathyroid Disease, Pituitary Disease, Systemic Lupus Erythematosus, Syndrome of Inappropriate Antidiuretic Hormone (SIADH), Adrenal Disease or Graves' Disease HEMATOLOGIC: Negative Blood Disorders, Anemia, Leukemia, Hemophilia, Thalassemia, Sickle Cell Disease or Clotting Problems PSYCHO/SOCIAL: Negative Psychiatric Problems, Schizophrenia, Recreational Drug Use, Bipolar Disorder, Depression, Anxiety, Behavior Problems, Self-Mutilation, Attention Deficit Disorder, Attention Deficit Hyperactivity Disorder, Depression, Post Traumatic Stress Disorder or Eating Disorder OTHER HISTORY: Positive Chicken Pox and Measles; Negative Hospitalization, Autoimmune Disease, Down Syndrome, Autism, Developmental Delay, Shingles, Falls, Blood Transfusions, Blood Transfusion Reaction, Anesthesia Reactions, Organ Transplant, Chemotherapy, Radiation Therapy, Hyperbaric Therapy, MRSA, VRSA, Vancomycin-Resistant Enterococci, Human Immunodeficiency Virus (HIV), Mumps, Rubella (Sami Measles), Pertussis, Clostridium Difficile, Cancer, Colorectal Cancer, Lung Cancer, Prostate Cancer or Testicular Cancer Family History FAMILY HISTORY: Positive Family Cancer (MOTHER(LUNG,BRAIN)/DAD(UNKNOWN)); Negative Family Psychiatric Problems, Family Respiratory Disorders, Family Cardiac Disorders, Family Gastrointestinal Problems, Family Surgery or Family Anesthesia Reaction Surgical History SURGICAL: Positive Tonsillectomy; Negative Cardiac Surgery, Open Heart Surgery, Coronary Artery Bypass Graft, Valve Replacement, Vascular Surgery, Coronary Stent, Cardiac Catheterization, Pacemaker, Angiogram, Auto Implanted Cardiovert Defib, Carotid Endarterectomy, Endocrine Surgery, Thyroidectomy, Ear Surgery, Tympanostomy Tube, Eye Surgery, Nose Surgery, Oral Surgery, Adenoidectomy, Cochlear Implant, Corneal Transplant, Throat Surgery, Abdominal Surgery, Tracheostomy, Gastric Bypass Surgery, Gastrostomy, Bowel Surgery, Nephrectomy, Transurethral Resection, Joint Replacement, Amputation, Open Reduction Internal Fixation, Arthroscopy, Neurologic Surgery, Brain Shunt, Mastectomy, Lumpectomy, Hysterectomy, Tubal Ligation, Section, Vasectomy or Organ Transplant OTHER SURGICAL HX: Tonsillectomy and adenoidectomy Social History SMOKING STATUS: Heavy (> 1 pack/day) SUBSTANCE USE: does not use Past Medical History Comments PMH COMMENT: Benign essential hypertension Diabetes mellitus type 2 hyperlipidemia Exam Vital Signs Temp Pulse Resp BP Pulse Ox O2 Del Method O2 Flow Rate 99.8 F 99 35 H 98/46 L 100 BiPAP 15 04/06/24 08:44 04/06/24 10:38 04/06/24 10:17 04/06/24 10:05 04/06/24 10:17 04/06/24 10:05 04/06/24 08:00 FiO2 100 04/06/24 10:17 Narrative Exam GENERAL: patient is intubated and MV NEURO: Unable to assess due to mental status HEENT: Dry mucosa. Eyes open, symmetrical, & clear CARDIO: No chest pain on palpation. Heart RRR, no obvious murmurs PULM: Tachypneic, rhonchi on auscultation bilaterally GI: Abdomen soft, nondistended, no pain on palpation. BSx4 [employer]RO/[employer]:: No further abnormalities noted. SKIN/MSK/EXT: No wounds/rashes/edema/amputations, no pain on palpation. Pedal pulses present B/L Results Labs 04/07/24 03:12 04/07/24 03:12 Labs: Short CBC 04/06/24 Range/Units 08:10 WBC 1.2 L (3.8-10.6) Thou/mm3 Hgb 14.4 (13.5-16.0) g/dL Hct 42.5 (41.0-53.0) % Plt Count 86 L (140-440) Thou/mm3 BMP 04/06/24 08:10 Sodium 133 L Potassium 4.7 Chloride 98 Carbon Dioxide 21.5 BUN 72 H Creatinine 4.4 H* Glucose 85 Calcium 8.7 Cardiac Enzymes 04/06/24 Range/Units 08:10 Troponin I 2.586 H* (0.0-0.045) ng/mL Liver Function 04/06/24 Range/Units 08:10 Total Bilirubin 0.4 (0.3-1.2) mg/dL AST 74 H (0-34) U/L ALT 91 H (10-49) U/L Alkaline Phosphatase 72 (46-116) U/L Albumin 3.6 (3.4-4.8) gm/dL Urine 04/06/24 Range/Units 08:45 Urine Color Drk-Yellow A (Lt Yel-Yel) Urine Clarity Turbid A (Clear/Hazy) Urine pH 5.5 (5.0-7.0) Ur Specific [place] 1.024 (1.001-1.035) Urine Protein 2+ A (Neg - Trace) Urine Glucose (UA) Trace (Negative) ABG Interpretation ABG results: 04/06/24 08:20 ABG pH 7.24 L ABG pCO2 50 H ABG pO2 54 L* ABG HCO3 21 ABG O2 Saturation 83 L ABG Base Excess -7 L Quality Measures Quality Measures sepsis Current suspected stage: sepsis Possible source: pulmonary Blood cultures ordered: yes Antibiotic ordered: Yes Advance care planning discussed with:: child Medications Home Medications and Allergies Home Medications ?Medication ?Instructions ?Recorded ?Confirmed ?Type ramipril 10 mg capsule 20 mg PO QDAY 07/30/1804/06 History atorvastatin 20 mg tablet 20 mg PO QDAY 04/06/2404/06 History celecoxib 100 mg capsule 100 mg PO Q24H 04/06/2403/02 History Allergies Allergy/AdvReac Type Severity Reaction Status Date / Time clonidine Allergy Verified 04/06/24 08:00 Visit Medications Acetaminophen (Acetaminophen 325 Mg Tablet) 650 mg PO Q6H PRN PRN Reason: Pain 1-3 or Fever >100.3 Stop: 05/06/24 10:33 Magnesium Sulfate (Magnesium Sulfate Ivpb) 2 gm in 50 mls @ 25 mls/hr IV X1 ONE Stop: 04/06/24 12:24 Last Admin: 04/06/24 10:33 Dose: 25 mls/hr Dexmedetomidine/Sodium Chloride (Precedex Ivpb) 200 mcg in 50 mls @ 4.082 mls/hr IV .[id number] PRN; Protocol PRN Reason: Per PROTOCOL Stop: 05/06/24 10:35 Ceftriaxone Sodium 1,000 mg/ (Sodium Chloride) 50 mls @ 100 mls/hr IV QDAY RADHA Stop: 04/13/24 10:38 Azithromycin 250 mg/ Sodium (Chloride) 250 mls @ 250 mls/hr IV QDAY [facility] Stop: 04/11/24 08:59 Ondansetron HCl (Ondansetron Inj 2 Mg/Ml Inj 2 Ml) 4 mg IV Q6H PRN; Protocol PRN Reason: NAUSEA OR VOMITING Stop: 05/06/24 10:33 Pantoprazole Sodium (Pantoprazole Inj 40 Mg Vial) 40 mg IVP QDAY RADHA Stop: 05/06/24 10:44 Sennosides (Senna Tablet) 1 tab PO QDAY PRN; Protocol PRN Reason: constipation Stop: 05/06/24 10:33 Sodium Chloride (Sodium Chloride Rt [place] 0.9% 3 Ml Nebu) 3 ml INH PRN PRN PRN Reason: SOLN Stop: 05/06/24 08:46 Last Admin: 04/06/24 10:39 Dose: 3 ml Sodium Chloride (Sodium Chloride Rt [place] 0.9% 3 Ml Nebu) 3 ml INH PRN PRN PRN Reason: SOLN Stop: 05/06/24 10:32 Discontinued Medications Albuterol (Albuterol Rt 2.5 Mg/0.5 Ml Nebu) 10 mg INH X1 ONE Stop: 04/06/24 08:48 Last Admin: 04/06/24 09:14 Dose: 10 mg Albuterol (Albuterol Rt 2.5 Mg/0.5 Ml Nebu) 15 mg INH X1 ONE Stop: 04/06/24 10:35 Last Admin: 04/06/24 10:38 Dose: 15 mg Sodium Chloride (Ns) 500 mls @ 999 mls/hr IV .Q31M ONE Stop: 04/06/24 08:54 Last Infusion: 04/06/24 08:55 Dose: Infused Ceftriaxone Sodium 2 gm/ (Sodium Chloride) 50 mls @ 100 mls/hr IV X1 ONE Stop: 04/06/24 09:22 Last Infusion: 04/06/24 09:29 Dose: Infused Azithromycin 500 mg/ Sodium (Chloride) 250 mls @ 250 mls/hr IV X1 ONE Stop: 04/06/24 09:52 Last Infusion: 04/06/24 10:21 Dose: Infused Sodium Chloride (Ns) 1,000 mls @ 999 mls/hr IV .Q1H1M ONE Stop: 04/06/24 09:57 Last Infusion: 04/06/24 10:11 Dose: Infused Dexmedetomidine/Sodium Chloride (Precedex Ivpb) 400 mcg in 100 mls @ 4.082 mls/hr IV .Q24H PRN; Protocol PRN Reason: Per PROTOCOL Stop: 05/06/24 10:24 Ipratropium [place] (Ipratropium Rt 0.5 Mg/ 2.5 Ml Nebu) 1 mg INH X1 ONE Stop: 04/06/24 08:48 Last Admin: 04/06/24 09:14 Dose: 1 mg Methylprednisolone Sodium Succinate (Methylprednisolone Sod Succ 62.5 Mg/Ml 2ml Vial) 125 mg IVP X1 ONE Stop: 04/06/24 08:24 Last Admin: 04/06/24 08:27 Dose: 125 mg Sodium Chloride (Sodium Chloride Rt 10% 15 Ml Nebu) 5 ml INH X1 ONE Stop: 04/06/24 10:35 Assessment & Plan Plan The patient evaluated bedside, accompanied by mother in the room, patient is a 78-year-old male, past medical history of peptic ulcer disease, remote history of GI bleed, undiagnosed COPD, active smoker, hypertension, hyperlipidemia and diabetes mellitus, who came into the ER following difficulty breathing and altered mental status, the patient was hypotensive on arrival, fluid bolus given, sepsis alert was called, due to acute hypoxic respiratory failure, patient was placed on BiPAP, chest x-ray showed significant bilateral pneumonia, patient's son is from [place], who recently came to visit, is not aware of past medical history, does not know if patient followed up with cardiology after 2019. Chart review shows patient was last seen in this hospital in 2019 for chest pain, was followed by ultrasonic seaming machine operator Dr. Post, coronary angiogram was done which showed nonocclusive coronary arteries, patient was eventually diagnosed with large bleeding duodenal ulcer and was followed with gastroenterology. Initial labs pertinent for severe leukopenia, ABG shows with lactic acidosis, metabolic acidosis acute renal failure, troponin elevation, already peaked at 2.5, now downtrending. Cardiology was consulted for elevated troponins. EKG showed sinus tachycardia versus multifocal atrial tachycardia, negative for acute ST changes. ICU was consulted due to increased work of breathing, plan for elective intubation and admission to ICU for further management. Past medical history: As noted above, duodenal ulcer, remote history of GI bleed, COPD, active smoker, hypertension, hyperlipidemia, diabetes mellitus. Past surgical history: Patient unable to provide history due to mental status and BiPAP, son present at bedside not aware of any pertinent surgeries. Home medications include celecoxib, atorvastatin, metformin, pantoprazole and ramipril. Problems: 1. Elevated troponins - NSTEMI, likely type II NSTEMI in the setting of sepsis. 2. Septic shock 3..Bilateral pneumonia 4. Anion gap metabolic acidosis, lactic acidosis 5. acute kidney injury 6. acute hypoxic respiratory failure Cardiology Was consulted for elevated troponins, troponinemia likely in the setting of severe sepsis , likely supply demand mismatch, septic shock currently on IV pressors. Troponins already peaked at 2.5 now downtrending, recommend stopping with further troponin checks. EKG shows sinus tachycardia/multiple episodes of tachycardia, no acute ST changes are noted, of note patient has a prior admission in 2019 to this hospital for epigastric discomfort, coronary angiogram by Dr. Palacios was done which showed clear coronary arteries, EGD was done by rn concurrent review which showed large duodenal ulcer. Of note patient, was lost to follow-up, family unsure if patient ever followed up with ultrasonic seaming machine operator, medication review shows no antiplatelet medications. Reportedly patient has having upper respiratory tract symptoms for the past 1 week, was being managed at home with Tylenol and symptomatic treatment, now presented with acute hypoxic respiratory failure, increased work of breathing while on BiPAP, ICU was consulted for evaluation, plan for elective intubation and mechanical ventilation, chest x-ray shows bilateral pneumonia, likely leading to severe sepsis and septic shock. Recommend continuing management of underlying sepsis, unlikely type I ND, given history of large duodenal ulcer, not excited about IV heparin or antiplatelet medications, can consider if clinical situation changes or new EKG changes develop. Patient's pH is less than 7 in spite of intubation as well as mechanical ventilation. Lactic acid is elevated and continues to be increasing. Patient is in severe septic shock at the present moment of time. Patient overall condition is critical and prognosis is poor. Management of rest of the medical conditions as per primary team and other consultants. Thank you for the consult and allowing me to participate in the care of the patient. Cardiology will continue to follow. Plan of care discussed with my attending, Dr. Nish Montoya PGY2 internal medicine Attending Provider Attestation/Addendum I have personally seen and examined the patient separately on the above date of service and discussed the plan of care with the resident. I reviewed the resident Dr. Gildardo Riddle consultation note and agree with the resident findings and plan in the note above and have also edited the documentation to reflect my findings and plan. Jus Mock M.D. Interventional Cardiology
[2024-04-06] MEDS: DEXMEDETOMIDINE 200 MCG IVPB 200 MCG/50 ML BOTTLE IV (10:53)
[2024-04-06 11:00] LABS: Base Excess -10 (-3-3); HCO3 18 mEq/L (20-26); Inspired Oxygen, FIO2 70 %; O2 Saturation 96 % (91-98); PCO2 51 mmHg (32.0-48.0); PO2 100 mmHg (83-108)
[2024-04-06 11:04] LABS: pH, Arterial 7.16 (7.35-7.45)
[2024-04-06 11:05] LABS: Allen Test Performed/OK; Puncture Site Right Brachial
[2024-04-06] MEDS: PANTOPRAZOLE INJ 40 MG VIAL IVP (11:07)
[2024-04-06 11:09] LABS: Glucose Estimated Average 131 mg/dL (80-131); Hemoglobin A1C 6.2 % Hgb (4.8-6.0)
[2024-04-06 11:24] LABS: Troponin I 2.423 ng/mL (0.0-0.045)
[2024-04-06 11:30] LABS: Reflex Lactate? Y
[2024-04-06] MEDS: fentaNYL CIT INJ 50 mCg/ML AMP 2ML 75 MCG IVP (11:53)
[2024-04-06] MEDS: KETAMINE 50 MG/ML VIAL 10 ML 100 MG IVP (11:57)
[2024-04-06] MEDS: ROCURONIUM INJ 10 MG/ML VIAL 10 ML 100 MG IVP (11:57)
[2024-04-06] MEDS: EPINEPHrine INJ 0.1 MG/ML SYRINGE 10ML 1 MG IV (12:00)
[2024-04-06] MEDS: Norepinephrine/D5W 8mg/250ml 8 MG/250 ML BAG 7.654 MG IV (12:05)
[2024-04-06] MEDS: fentaNYL 2,500 MCG/250 ML BAG 2,500 MCG/250 ML BAG IV (12:10)
[2024-04-06] MEDS: MIDAZOLAM INJ 1 MG/ML VIAL 2 ML 2 MG IV (12:12)
[2024-04-06 12:16] LABS: Path Review Blood Smear Sent to Pathologist
[2024-04-06] MEDS: VASOPRESSIN IN NS IVPB 20 UNIT/100 ML BAG 9 UNIT IV ×2 (12:40→23:08)
[2024-04-06] MEDS: RINGERS LACTATED 1000 ML 1,000 ML 999 ML IV (12:42)
[2024-04-06 13:06] LABS: Lactate (Lactic Acid) 4.4 mMol/L (0.4-2.0)
--- NOTE | 2024-04-06 13:19 | XR_ITS ---
Examination: Chest, AP, portable, single view post procedure. Technique: Chest, AP upright, portable, single view Date and time: 04/06/2024 1:27 PM PM INDICATION: Post procedure. COMPARISON: Earlier today. FINDINGS: Interval placement of ET tube with distal tip 7.5 cm above the mary. Interval placement of feeding tube with distal tip off the inferior edge of the film. Persistent bilateral infiltrates with chronic interstitial changes. IMPRESSION: Interval placement of ET tube positioned 7.5 cm above the mary. Consider advancing tube 2 to 3 cm. Persistent bilateral infiltrates.
--- NOTE | 2024-04-06 13:30 | PD.INTHP ---
Documentation for date of: 04/06/24 Clinical Veterinarian [facility] History of Present Illness History of present illness: The patient is a 78-year-old male with a past medical history of COPD, hypertension, hyperlipidemia, diabetes, duodenal ulcer who was brought into the ED by family on 04/06/2024 with complaints of altered mental status and worsening respiration. Per son at bedside, the patient has been sick with upper respiratory infections for the last couple days with associated subjective fever, managed with Tylenol and supportive treatment. He also reports that he has been hydrating him more than usual with water and Gatorade. Two days ago, the patient was said to have had 2 episodes of loose bowel movements as well as reported polyuria, but otherwise clinical status remained unchanged. Today, he was noted to be altered when he woke up, as well as hallucinating. Son tried to feed him, but patient became unresponsive, with breathing function change after which she was brought to the ED. ED course: In the ED, patient was afebrile but hypoxic, saturating 60% on room air after which she was placed on oxime mask but failed to improve and was shortly placed on BiPAP. Initial vital signs -hypotensive with blood pressure 78/55, tachycardic. Labs significant for WBC of 1.2, globin 14.4, PLT 86. Initial ABG, pH 7.24 pCO2 50. Sodium 133 potassium 4.7 chloride 98 bicarb 21.5 BUN 72 creatinine 4.4, EGFR 13, lactic acid 4.1, Pro-Jesus Manuel 224.67. Troponins 2.586 Urinalysis showed a dark yellow urine with 2+ protein and some amorphous crystals. Chest x-ray showed extensive bilateral pneumonia and an EKG showed sinus tachycardia with no arrhythmia or acute ST changes. Patient continues to be on BiPAP with increased work of breathing and ICU team was consulted. After breathing treatments and IV magnesium, he continued to have increased work of breathing with high respiratory rate. Decision was made to intubate the patient and admitted to the ICU PMHx-as above PSHx-cardiac catheterization Social history-smokes a pack of cigarettes a day, social drinker, no illicit drugs Home meds-ramipril, metformin, atorvastatin Review of Systems Review of Systems ROS Unobtainable: unobtainable due to mental status Meds Home Medications and Allergies Home Medications ?Medication ?Instructions ?Recorded ?Confirmed ?Type ramipril 10 mg capsule 20 mg PO QDAY 07/30/18 04/06/24 History atorvastatin 20 mg tablet 20 mg PO QDAY 04/06/24 04/06/24 History celecoxib 100 mg capsule 100 mg PO Q24H 04/06/24 04/06/24 History Allergies Allergy/AdvReac Type Severity Reaction Status Date / Time clonidine Allergy Verified 04/06/24 08:00 Exam Vital Signs Temp Pulse Resp BP Pulse Ox O2 Del Method O2 Flow Rate 99.8 F 99 22 H 128/40 L 99 Mechanical Ventilation 15 04/06/24 12:53 04/06/24 13:00 04/06/24 13:00 04/06/24 13:00 04/06/24 13:00 04/06/24 12:53 04/06/24 08:00 FiO2 90 04/06/24 12:53 Results: Labs 04/06/24 08:10 04/06/24 08:10 Labs: Short CBC 04/06/24 Range/Units 08:10 WBC 1.2 L (3.8-10.6) Thou/mm3 Hgb 14.4 (13.5-16.0) g/dL Hct 42.5 (41.0-53.0) % Plt Count 86 L (140-440) Thou/mm3 BMP 04/06/24 08:10 Sodium 133 L Potassium 4.7 Chloride 98 Carbon Dioxide 21.5 BUN 72 H Creatinine 4.4 H* Glucose 85 Calcium 8.7 Cardiac Enzymes 04/06/24 04/06/24 Range/Units 08:10 10:38 Troponin I 2.586 H* 2.423 H* (0.0-0.045) ng/mL Liver Function 04/06/24 Range/Units 08:10 Total Bilirubin 0.4 (0.3-1.2) mg/dL AST 74 H (0-34) U/L ALT 91 H (10-49) U/L Alkaline Phosphatase 72 (46-116) U/L Albumin 3.6 (3.4-4.8) gm/dL Urine 04/06/24 Range/Units 08:45 Urine Color Drk-Yellow A (Lt Yel-Yel) Urine Clarity Turbid A (Clear/Hazy) Urine pH 5.5 (5.0-7.0) Ur Specific [place] 1.024 (1.001-1.035) Urine Protein 2+ A (Neg - Trace) Urine Glucose (UA) Trace (Negative) ABG Interpretation ABG results: 04/06/24 04/06/24 08:20 10:53 ABG pH 7.24 L 7.16 L* ABG pCO2 50 H 51 H ABG pO2 54 L* 100 D ABG HCO3 21 18 L ABG O2 Saturation 83 L 96 ABG Base Excess -7 L -10 L Assessment & Plan Additional Plan Additional Plan: PLAN: See MD orders and discussion above. Will continue supportive care of the organ system problems, diagnoses, and failures noted above. [A central line continues to be necessary for infusion of medications and IV fluids, it is to be removed when other adequate venous access is accomplished.] [Cannot be safely managed without restraints as potential for harm secondary to inadvertent movement and loss of tubes and lines outweighs the burdens of restraint.] This patient is critically ill and required [] minutes of my time to provide documentation, evaluate, manage and maintain or prevent deterioration of the organ systems and problems noted above. This critical care time does not include time I spent performing procedures that are reported separately. [If lovell catheter present, it remains necessary to monitor urine output continuously, and/or divert urine from the skin. It will be removed per policy when it is not needed for these purposes.] Provider Notation Provider Notation: Although this document has been carefully reviewed, there may still be some phonetic and other typographical errors. These errors are purely grammatical due to imperfections in the software program and should not be construed in any way to compromise the substance of the patient's medical care during this visit. Thank you for the opportunity and privilege in assisting you with this patient's care and management.
[2024-04-06 13:41] LABS: Reflex Lactate? Y
[2024-04-06 13:48] LABS: Base Excess -14 (-3-3); HCO3 18 mEq/L (20-26); Inspired Oxygen, FIO2 90 %; O2 Saturation 96 % (91-98); PCO2 70 mmHg (32.0-48.0); PO2 111 mmHg (83-108)
[2024-04-06 13:50] LABS: pH, Arterial 7.02 (7.35-7.45)
[2024-04-06 13:51] LABS: Allen Test Performed/OK; Puncture Site Right Brachial
--- NOTE | 2024-04-06 13:56 | ESHP_ITS ---
<Statement entered by Saqib Hernandez MD - 04/06/24 17:19> 78-year-old male with past medical history of COPD(smoker 1 pack/day), hypertension, hyperlipidemia, duodenal ulcer, diabetes, mild dementia? was admitted for acute hypoxic respiratory failure requiring intubation for airway protection.? Will continue IV antibiotics ceftriaxone and azithromycin patient is on pressure support for possible septic shock, will follow-up C. difficile PCR.? will follow-up a.m. labs. his PERC score is 3 and wells score is 1.5 (low risk of PE ). we will follow CT chest . I discussed with and supervised my co-resident involved in the care of this patient. I agree with the assessment and plan as documented above. Saqib Hernandez,PGY-3 Disclaimer: Despite multiple revisions, due to the dictation software being used, the document below may not be free of grammatical errors including phonetic/typographic errors. However, this does not deter from our commitment to providing health care in the patient's best interest in mind Documentation for date of: 04/06/24 HPI History of Present Illness History of present illness: The patient is a 78-year-old male with a past medical history of COPD, hypertension, hyperlipidemia, diabetes, duodenal ulcer who was brought into the ED by family on 04/06/2024 with complaints of altered mental status and worsening respiration. Per son at bedside, the patient has been sick with upper respiratory infections for the last couple days with associated subjective fever, managed with Tylenol and supportive treatment. He also reports that he has been hydrating him more than usual with water and Gatorade. Two days ago, the patient was said to have had 2 episodes of loose bowel movements as well as reported polyuria, but otherwise clinical status remained unchanged. Today, he was noted to be altered when he woke up, as well as hallucinating. Son tried to feed him, but patient became unresponsive, with breathing function change after which she was brought to the ED. ED course: In the ED, patient was afebrile but hypoxic, saturating 60% on room air after which she was placed on oxime mask but failed to improve and was shortly placed on BiPAP. Initial vital signs -hypotensive with blood pressure 78/55, tachycardic. Labs significant for WBC of 1.2, globin 14.4, PLT 86. Initial ABG, pH 7.24 pCO2 50. Sodium 133 potassium 4.7 chloride 98 bicarb 21.5 BUN 72 creatinine 4.4, EGFR 13, lactic acid 4.1, Pro-Jesus Manuel 224.67. Troponins 2.586 Urinalysis showed a dark yellow urine with 2+ protein and some amorphous crystals. Chest x-ray showed extensive bilateral pneumonia and an EKG showed sinus tachycardia with no arrhythmia or acute ST changes. Patient continues to be on BiPAP with increased work of breathing and ICU team was consulted. After breathing treatments and IV magnesium, he continued to have increased work of breathing with high respiratory rate. Decision was made to intubate the patient and admitted to the ICU PMHx-as above PSHx-cardiac catheterization Social history-smokes a pack of cigarettes a day, social drinker, no illicit drugs Home meds-ramipril, metformin, atorvastatin Review of Systems Review of Systems ROS Unobtainable: unobtainable due to mental status Exam Vital Signs Temp Pulse Resp BP Pulse Ox O2 Del Method O2 Flow Rate 99.8 F 99 22 H 128/40 L 99 Mechanical Ventilation 15 04/06/24 12:53 04/06/24 13:00 04/06/24 13:00 04/06/24 13:00 04/06/24 13:00 04/06/24 12:53 04/06/24 08:00 FiO2 90 04/06/24 12:53 Narrative Exam GENERAL: patient is intubated and MV NEURO: Unable to assess due to mental status HEENT: Dry mucosa. Eyes open, symmetrical, & clear CARDIO: No chest pain on palpation. Heart RRR, no obvious murmurs PULM: Tachypneic, rhonchi on auscultation bilaterally GI: Abdomen soft, nondistended, no pain on palpation. BSx4 URO/INGOT HEADER:: No further abnormalities noted. SKIN/MSK/EXT: No wounds/rashes/edema/amputations, no pain on palpation. Pedal pulses present B/L Results: Labs 04/07/24 03:12 04/07/24 03:12 Labs: Short CBC 04/06/24 Range/Units 08:10 WBC 1.2 L (3.8-10.6) Thou/mm3 Hgb 14.4 (13.5-16.0) g/dL Hct 42.5 (41.0-53.0) % Plt Count 86 L (140-440) Thou/mm3 BMP 04/06/24 08:10 Sodium 133 L Potassium 4.7 Chloride 98 Carbon Dioxide 21.5 BUN 72 H Creatinine 4.4 H* Glucose 85 Calcium 8.7 Cardiac Enzymes 04/06/24 04/06/24 Range/Units 08:10 10:38 Troponin I 2.586 H* 2.423 H* (0.0-0.045) ng/mL Liver Function 04/06/24 Range/Units 08:10 Total Bilirubin 0.4 (0.3-1.2) mg/dL AST 74 H (0-34) U/L ALT 91 H (10-49) U/L Alkaline Phosphatase 72 (46-116) U/L Albumin 3.6 (3.4-4.8) gm/dL Urine 04/06/24 Range/Units 08:45 Urine Color Drk-Yellow A (Lt Yel-Yel) Urine Clarity Turbid A (Clear/Hazy) Urine pH 5.5 (5.0-7.0) Ur Specific [place] 1.024 (1.001-1.035) Urine Protein 2+ A (Neg - Trace) Urine Glucose (UA) Trace (Negative) ABG Interpretation ABG results: 04/06/24 04/06/24 04/06/24 08:20 10:53 13:30 ABG pH 7.24 L 7.16 L* 7.02 L* D ABG pCO2 50 H 51 H 70 H D ABG pO2 54 L* 100 D 111 H ABG HCO3 21 18 L 18 L ABG O2 Saturation 83 L 96 96 ABG Base Excess -7 L -10 L -14 L Quality Measures Quality Measures VTE prophylaxis Advance care planning discussed with:: child Medications Home Medications and Allergies Home Medications ?Medication ?Instructions ?Recorded ?Confirmed ?Type ramipril 10 mg capsule 20 mg PO QDAY 07/30/1804/06 History atorvastatin 20 mg tablet 20 mg PO QDAY 04/06/2404/06 History celecoxib 100 mg capsule 100 mg PO Q24H 04/06/24 03/03/02 History Allergies Allergy/AdvReac Type Severity Reaction Status Date / Time clonidine Allergy Verified 04/06/24 08:00 Visit Medications Acetaminophen (Acetaminophen 325 Mg Tablet) 650 mg PO Q6H PRN PRN Reason: Pain 1-3 or Fever >100.3 Stop: 05/06/24 10:33 Atorvastatin Calcium (Atorvastatin Calcium 20 Mg Tablet) 20 mg PO HS [facility] Stop: 05/06/24 20:59 Dexmedetomidine/Sodium Chloride (Precedex Ivpb) 200 mcg in 50 mls @ 4.082 mls/hr IV .[id number] PRN; Protocol PRN Reason: Per PROTOCOL Stop: 05/06/24 10:35 Last Titration: 04/06/24 12:10 Dose: 0 mcg/kg/hr, 0 mls/hr Ceftriaxone Sodium 1,000 mg/ (Sodium Chloride) 50 mls @ 100 mls/hr IV QDAY [facility] Stop: 04/14/24 08:59 Azithromycin 250 mg/ Sodium (Chloride) 250 mls @ 250 mls/hr IV QDAY [facility] Stop: 04/11/24 08:59 Propofol (Diprivan Ivpb) 1,000 mg in 100 mls @ 2.449 mls/hr IV .Q24H PRN; Protocol PRN Reason: PER PROTOCOL Stop: 05/06/24 11:43 Fentanyl Citrate (Sublimaze Inj 2,500 Mcg/250 Ml Bag) 2,500 mcg in 250 mls @ 2.5 mls/hr IV .Q24H PRN; Protocol PRN Reason: PER PROTOCOL Stop: 04/11/24 11:43 Last Admin: 04/06/24 12:10 Dose: 25 mcg/hr, 2.5 mls/hr Norepinephrine/Dextrose (Levophed In D5w 8mg/250ml) 8 mg in 250 mls @ 7.654 mls/hr IV .Q24H PRN; Protocol PRN Reason: PER PROTOCOL Stop: 05/06/24 11:57 Last Titration: 04/06/24 13:16 Dose: 0.3 mcg/kg/min, 45.926 mls/hr Vasopressin/Sodium Chloride (Vasostrict/Ns Ivpb) 20 unit in 100 mls @ 9 mls/hr IV .Q11H7M PRN; Protocol PRN Reason: PER PROTOCOL Stop: 05/06/24 12:33 Last Admin: 04/06/24 12:40 Dose: 0.03 unit/min, 9 mls/hr Ondansetron HCl (Ondansetron Inj 2 Mg/Ml Inj 2 Ml) 4 mg IV Q6H PRN; Protocol PRN Reason: NAUSEA OR VOMITING Stop: 05/06/24 10:33 Pantoprazole Sodium (Pantoprazole Inj 40 Mg Vial) 40 mg IVP QDAY [facility] Stop: 05/06/24 10:44 Last Admin: 04/06/24 11:07 Dose: 40 mg Sennosides (Senna Tablet) 1 tab PO QDAY PRN; Protocol PRN Reason: constipation Stop: 05/06/24 10:33 Sodium Chloride (Sodium Chloride Rt [place] 0.9% 3 Ml Nebu) 3 ml INH PRN PRN PRN Reason: SOLN Stop: 05/06/24 08:46 Last Admin: 04/06/24 10:39 Dose: 3 ml Sodium Chloride (Sodium Chloride Rt Sa[place] 0.9% 3 Ml Nebu) 3 ml INH PRN PRN PRN Reason: SOLN Stop: 05/06/24 10:32 Discontinued Medications Albuterol (Albuterol Rt 2.5 Mg/0.5 Ml Nebu) 10 mg INH X1 ONE Stop: 04/06/24 08:48 Last Admin: 04/06/24 09:14 Dose: 10 mg Albuterol (Albuterol Rt 2.5 Mg/0.5 Ml Nebu) 15 mg INH X1 ONE Stop: 04/06/24 10:35 Last Admin: 04/06/24 10:38 Dose: 15 mg Epinephrine HCl (Epinephrine Inj 0.1 Mg/Ml Syringe 10ml) 1 mg IV X1 ONE Stop: 04/06/24 11:59 Fentanyl Citrate (Fentanyl Cit Inj 50 Mcg/Ml Amp 2ml) 75 mcg IVP X1 ONE Stop: 04/06/24 11:43 Last Admin: 04/06/24 11:53 Dose: 75 mcg Sodium Chloride (Ns) 500 mls @ 999 mls/hr IV .Q31M ONE Stop: 04/06/24 08:54 Last Infusion: 04/06/24 08:55 Dose: Infused Ceftriaxone Sodium 2 gm/ (Sodium Chloride) 50 mls @ 100 mls/hr IV X1 ONE Stop: 04/06/24 09:22 Last Infusion: 04/06/24 09:29 Dose: Infused Azithromycin 500 mg/ Sodium (Chloride) 250 mls @ 250 mls/hr IV X1 ONE Stop: 04/06/24 09:52 Last Infusion: 04/06/24 10:21 Dose: Infused Sodium Chloride (Ns) 1,000 mls @ 999 mls/hr IV .Q1H1M ONE Stop: 04/06/24 09:57 Last Infusion: 04/06/24 10:11 Dose: Infused Magnesium Sulfate (Magnesium Sulfate Ivpb) 2 gm in 50 mls @ 25 mls/hr IV X1 ONE Stop: 04/06/24 12:24 Last Infusion: 04/06/24 12:01 Dose: Infused Dexmedetomidine/Sodium Chloride (Precedex Ivpb) 400 mcg in 100 mls @ 4.082 mls/hr IV .Q24H PRN; Protocol PRN Reason: Per PROTOCOL Stop: 05/06/24 10:24 Lactated Ringer's (Lactated Ringers) 1,000 mls @ 999 mls/hr IV .Q1H1M ONE Stop: 04/06/24 13:29 Last Infusion: 04/06/24 13:24 Dose: Infused Ipratropium [place] (Ipratropium Rt 0.5 Mg/ 2.5 Ml Nebu) 1 mg INH X1 ONE Stop: 04/06/24 08:48 Last Admin: 04/06/24 09:14 Dose: 1 mg Ketamine HCl (Ketamine 50 Mg/Ml Vial 10 Ml) 100 mg IVP X1 ONE Stop: 04/06/24 11:43 Last Admin: 04/06/24 11:57 Dose: 100 mg Methylprednisolone Sodium Succinate (Methylprednisolone Sod Succ 62.5 Mg/Ml 2ml Vial) 125 mg IVP X1 ONE Stop: 04/06/24 08:24 Last Admin: 04/06/24 08:27 Dose: 125 mg Midazolam HCl (Midazolam Inj 1 Mg/Ml Vial 2 Ml) 2 mg IV X1 ONE Stop: 04/06/24 12:09 Last Admin: 04/06/24 12:12 Dose: 2 mg Rocuronium [place] (Rocuronium Inj 10 Mg/Ml Vial 10 Ml) 100 mg IVP X1 ONE Stop: 04/06/24 11:53 Last Admin: 04/06/24 11:57 Dose: 100 mg Sodium Chloride (Sodium Chloride Rt 10% 15 Ml Nebu) 5 ml INH X1 ONE Stop: 04/06/24 10:35 Assessment & Plan Plan Summary: The patient is a 78-year-old male with a past medical history of COPD, hypertension, hyperlipidemia, diabetes, duodenal ulcer who was brought into the ED by family on 04/06/2024 with complaints of altered mental status and worsening respiration. Neuro: #Acute Encephalopathy #Mild dementia #Delirium The patient presented after son states that he was hallucinating and not waking up this morning. At baseline, the suspect that he has some greater dementia, although not officially diagnosed. Prior to this, the patient is AAOX3 most times at baseline, lives independently and is able to carry out activities of daily living assisted. In evaluation in the ED, the patient's was unable to follow commands, although he was on BiPAP and that could possibly have attributed to he is being uncomfortable. ABG shows hypercarbia with a pH of 7.24. Plan: -Patient sedated and intubated on propofol and fentanyl Cardiovascular: #Shock On admission, patient was noted to be hypotensive with blood pressure in the 80s. He received 1.5 L of fluids but remained hypotensive, was also tachycardic. Admitted to ICU for pressor support. Plan: -IV Levophed and vasopressin -Maintenance IVF if needed, following repeat renal panel #elevated troponon likely type 2 in the setting of septic shock -On admission troponin was 2.5 -will trend trop -Cardiology on board Pulm: #Acute hypoxic respiratory failure #Extensive bilateral pneumonia #COPD exacerbation Patient has a history of COPD, on chart review does not look to be on any medications. Per son at bedside, patient still smokes about a pack of cigarettes per day and has been doing so for more than 50 years. On admission, he was noted to be hypoxic, with saturation in the 80s. On examination, bilateral rhonchi on auscultation, no wheezing or crackles. Chest x-ray showed extensive bilateral pneumonia ABG on admission, significant for respiratory acidosis. Plan: -Patient intubated for airway protection -Levalbuterol/ipratropium as needed Renal: # Acute kidney injury #SOFYA on CKD likely The patient does not have a lot of history on record. However, creatinine from about a month ago was 1.4. No noted or reported history of CKD On admission, creatinine at 4.4 and BUN of 72 In view of recent diarrhea and polyuria with possibly decreased oral intake, this is likely prerenal. Patient received 1.5 L of fluids in the ED Plan: -Repeat renal function panel -Maintenance IV fluid if not improved -Avoid nephrotoxic medications -Renally dose medications #Lactic acidosis Lactic acid on admission-1.1. After 1.5 L of fluids, lactic acid increased to 3.0 Plan: -Continue to trend #Isotonic hyponatremia Admitting sodium-133, osmolarity-286 Total protein-normal Plan: -Follow-up lipid panel GI: #Diarrhea Patient presenting with a 2-day history of diarrhea. After admission to the unit, patient still noted to be having bowel movements. No recent antibiotic use, no travel history, no sick contacts. Plan: -C. difficile PCR -Maintenance IV fluids Endo: #History of type II DM The patient has a history of type II DM and is on metformin 850 mg daily. A1c-6.2 Glucose on admission-85. Patient is currently n.p.o. Plan: -Continue to monitor blood glucose -ISS if needed -Hypoglycemic protocols in place Heme/Onc: #Leukopenia #Thrombocytopenia WBC count on admission-1.2, platelets-86 Patient does meet sepsis criteria but will work up Plan: -Peripheral blood smear Infxs: #Septic shock #Bilateral pneumonia Patient presenting with worsening respiration, shortness of breath and was hypoxic on admission. Chest x-ray showed bilateral pneumonia Increased work of breathing even on BiPAP regarding need for intubation Admittting labs- leukopenia, increased lactic acid and procalcitonin Plan: -IV ceftriaxone and azithromycin -Blood culture -Sputum culture and Gram stain Health maintenance: Dispo: ICU, Intubated Diet: NPO GI: Pantoprazole DVT: SCDs Werner: None Lines: Peripheral, Central Code: Full Case was discussed with Dr Hernandez PGY-3 and attending physician, Dr Shanna Courtney MD PGY-1 Disclaimer: This note was dictated by speech recognition. Minor errors in industrial engineering analyst may be present due to voice recognition software. Attending Provider Attestation/Addendum Patient seen and examined with the above resident, Gregory Courtney MD. I agree with the findings, assessment, and plan of care as documented except for any difference below. Patient with acute hypoxic respiratory failure. Rescued in ED on Bipap but failing with worsening P/F ratio and gas exchange. Imminent respiratory arrest and intubation pursued with adequate pre-oxygenation. Hemodynamic instability followed. Resuscitated with fluids and given pulmonary pathology avoidance of excessive volume was done and resuscitation with vasopressor support started. Patient with severe renal failure as well but limited ability to safely perform dialysis given continued escalating pressor requirements throughout the day. Patient on appropriate antibiotic coverage for community acquired organisms, broadened out given continued decline with vancomycin/ zosyn as well. Remains on appropriate lung protective settings though may nee do be generous with volumes in short term to ensure adequate optimization of severe acidosis as well. Will use sodium HCO3 as well to compensate to augment pressors along with use of calcium gluconate. Overall prognosis remains poor given likely delay of presentation up to 3 days per family members though they had attempted care at home prior. Prior to intubation and after I updated family on stabilization but reiterated severity of illness and potential inability to wean given his prior history of COPD as well as evidenced on imaging. Overnight resident did call me with continued decline, requested he call family to be at bedside given possible demise despite aggresisve therapy. Total critical care time: I personally spent 60 minutes for review of physiologic parameters, directing plan of care, coordination of care with other specialists, and counseling family at the bedside throughout the day. This is exclusive of time spnet teachin housestaff or performing any separate billable procedures. Patient required critical care services for septic shock and acute hypoxic respiratory failure due to multifocal pneumonia. He remains at high risk of mortality warranting close monitoring and care only available in the intensive care unit.
--- NOTE | 2024-04-06 14:14 | PC.RT ---
ETT WAS AT 22 AT TEETH XRAY WAS TAKEN IT WAS EXTREMELY HI, SO I ADVANCED IT TO 26 AT THE TEETH AND THE CURRENT XRAY STILL SAYS TO ADVANCED TUBE 2-3 CM.
--- NOTE | 2024-04-06 14:36 | PD.RESPROC ---
Procedures Procedure Date / Time 04/06/24 1436 Procedure Narrative Procedure Narrative: Attending Attestation: I was present for entire procedure. No immediate complications. Patient tolerated procedure well. Minimal blood loss. Central Line Placement Right Femoral: Indication(s): shock Informed consent obtained: obtained from surrogate decision maker Time out done, and the following verified: correct patient, side and site, procedure, patient position and implants and/or equipment Patient placed on monitor/pulse ox: Yes Hand Hygiene: scrub, soap & water and alcohol-based hand rub Max Sterile Barrier Techniques used: cap, mask, sterile gown, sterile gloves and sterile full body drape Central line prep: Povidone-Iodine 1% and sterile drapes applied Ultrasound used for placement: No Sterile Technique if Ultrasound used, including sterile gel: n/a Central line lumen inserted: triple Post procedure: sutured in place, good blood return, all ports aspirated, flushed, capped and sterile dressing applied Patient tolerated procedure: well and no complications EBL(ml): 10 Complications: none
--- NOTE | 2024-04-06 14:39 | PD.RESPROC ---
Procedures Procedure Date / Time 04/06/24 1439 Procedural Time Out Time out performed: Attending Attestation: I was present for entire procedure. Patient tolerated procedure. Hypotension complicated course requiring push-dose epinepherine with successful maintainance of BP. Gas exchanged preserved on MV. Follow up chest xray confirmed adequate placement. Vasopressors initiated while on sedation. Procedure Narrative Procedure Narrative: Attending Attestation: Intubation Indication(s): acute Resp Failure and inability to protect airway Informed consent obtained: obtained from surrogate decision maker Time out done, and the following verified: correct patient, side and site, procedure, patient position and implants and/or equipment Sedative: ketamine Sedative #2: fentanyl Paralytic: rocuronium Laryngoscope: other (glidescope) ET tube size: 8 ET tube uncuffed: No Tube secured location: lips Tube placement confirmation: visualized tube passing through cords, equal breath sounds bilaterally, no breath sounds over epigastrium and confirmation by capnometry Patient tolerated procedure: well Intubation complications: none
[2024-04-06 15:06] LABS: Cocci Serology, IgM Negative (Negative)
--- NOTE | 2024-04-06 15:38 | XR_ITS ---
Exam: Chest 1 view, AP Date and time of exam: 04/06/2024, 3:41 PM INDICATION: Tube placement Comparison: Earlier today Findings: ET tube position approximately 6.5 cm above the mary. Diffuse bilateral infiltrates unchanged. Impression: ETT placement as above . Stable bilateral infiltrates
[2024-04-06 16:01] LABS: Reflex Lactate? Y
[2024-04-06 16:24] LABS: Lactic Acid, 3 HR 2.6 mMol/L (0.4-2.0)
[2024-04-06 17:57] LABS: Base Excess -15 (-3-3); HCO3 18 mEq/L (20-26); Inspired Oxygen, FIO2 100 %; O2 Saturation 87 % (91-98); PCO2 81 mmHg (32.0-48.0); PO2 67 mmHg (83-108)
[2024-04-06 17:58] LABS: Allen Test Performed/OK; Puncture Site Right Brachial
[2024-04-06 18:00] LABS: pH, Arterial 6.96 (7.35-7.45)
[2024-04-06 18:14] LABS: Anion Gap 17 (7-16); Calcium 7.7 mg/dL (8.3-10.6); Chloride 101 mMol/L (98-107); Sodium 134 mMol/L (136-145)
[2024-04-06] MEDS: ATROPINE SULF 0.2 MG IV (18:16)
--- NOTE | 2024-04-06 18:18 | EKG_ITS ---
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
[2024-04-06 18:19] LABS: Clostridium Difficile PCR Negative (Negative)
[2024-04-06 18:23] LABS: Albumin, Serum 3.1 gm/dL (3.4-4.8); BUN/Creatinine Ratio 17 Ratio (12-20); Blood Urea Nitrogen 77 mg/dL (9-23); Calcium (Corrected) 8.4 mg/dL (8.5-10.1); Creatinine (Component) 4.6 mg/dL (0.6-1.3); Glucose 192 mg/dL (74-106); Osmolality,Calculated 296 (275-295); eGFR 12 See Note
[2024-04-06 18:24] LABS: Phosphorous 9.9 mg/dL (2.4-5.1); Troponin I 1.787 ng/mL (0.0-0.045)
[2024-04-06] MEDS: PIPER/TAZO INJ 3.375 GM in SODIUM CHLORIDE 0.9% (Popper) 50 ML IV (18:32)
[2024-04-06] MEDS: Sodium Bicarb 8.4% 50ml Vial* 88.23 MEQ in DEXTROSE 5%-WATER 500 ML 100 MEQ IV (18:43)
[2024-04-06] MEDS: Norepinephrine/D5W 8mg/250ml 8 MG/250 ML BAG 45.926 MG IV (18:43)
[2024-04-06] MEDS: VANCOMYCIN/WATER 1250 MG IVPB 250 ML 120 MG IV (18:44)
[2024-04-06 18:54] LABS: Lactate (Lactic Acid) 4.5 mMol/L (0.4-2.0)
[2024-04-06 21:50] LABS: Reflex Lactate? Y
[2024-04-06] MEDS: ATORVASTATIN CALCIUM 20 MG TABLET PO (22:00)
[2024-04-06 22:05] LABS: Base Excess -16 (-3-3); HCO3 15 mEq/L (20-26); Inspired Oxygen, FIO2 100 %; O2 Saturation 93 % (91-98); PCO2 54 mmHg (32.0-48.0); PO2 77 mmHg (83-108)
[2024-04-06 22:06] LABS: Allen Test Performed/OK; Puncture Site Right Brachial
[2024-04-06 22:07] LABS: pH, Arterial 7.04 (7.35-7.45)
[2024-04-06] MEDS: Sodium Bicarb Inj 8.4% SYR 50 ML SYRINGE IV (23:08)
[2024-04-07] VITALS (57 sets, daily range): BP systolic 00–185; BP diastolic 00–86; PULSE 77–103; RESP 0–36; TEMP 36.7–36.8; O2SAT 0–94
[2024-04-07 00:19] LABS: Troponin I 1.648 ng/mL (0.0-0.045)
[2024-04-07 01:45] LABS: Albumin, Serum 2.8 gm/dL (3.4-4.8); Anion Gap 21 (7-16); BUN/Creatinine Ratio 16 Ratio (12-20); Blood Urea Nitrogen 85 mg/dL (9-23); Calcium 7.4 mg/dL (8.3-10.6); Calcium (Corrected) 8.4 mg/dL (8.5-10.1); Carbon Dioxide 15.1 mMol/L (20.0-31.0); Chloride 97 mMol/L (98-107); Creatinine (Component) 5.2 mg/dL (0.6-1.3); Estimated Creatinine Clearance 13.3 mL/min (>60); Glucose 118 mg/dL (74-106); Osmolality,Calculated 293 (275-295); Sodium 133 mMol/L (136-145); eGFR 11 See Note
[2024-04-07] MEDS: Sodium Bicarb 8.4% 50ml Vial* 88.23 MEQ in DEXTROSE 5%-WATER 500 ML 100 MEQ IV (01:45)
[2024-04-07 01:48] LABS: Phosphorous 14.2 mg/dL (2.4-5.1); Potassium 7.3 mMol/L (3.4-5.1)
[2024-04-07] MEDS: Norepinephrine/D5W 8mg/250ml 8 MG/250 ML BAG 36.741 MG IV (01:48)
[2024-04-07] MEDS: DEXTROSE 50%-WATER INJ 50 ML SYRINGE IV ×3 (01:56→04:14)
[2024-04-07] MEDS: INSULIN HUM REGULAR 1 UNIT/0.01 ML (PER UNIT) 5 UNIT IV ×2 (01:56→04:22)
[2024-04-07] MEDS: CALCIUM GLUCONATE 10% INJ 1 GM/10 ML VIAL IV ×2 (02:00→04:14)
[2024-04-07] MEDS: SOD POLYSTYRENE SULFON SUSP 15 GM/60 ML BTL PO (02:00)
[2024-04-07] MEDS: Sodium Bicarb Inj 8.4% SYR 50 ML SYRINGE IV ×2 (02:00→04:02)
[2024-04-07 03:25] LABS: Basophils % (Auto) 1 % (0-2.5); Eosinophils % (Auto) 0 % (0-10); Hematocrit 35.3 % (41.0-53.0); Hemoglobin 11.1 g/dL (13.5-16.0); Immature Granulocytes % (Auto) 2 % (0-0); Immature Granulocytes Auto 0.03 Thou/mm3 (0.00-0.00); Lymphocytes # (Auto) 0.6 Thou/mm3 (1.0-4.8); Lymphocytes % (Auto) 34 % (10-50); Mean Corpuscular HGB Conc 31.4 g/dl (31.0-37.0); Mean Corpuscular Hemoglobin 30.3 pg (25.0-35.0); Mean Corpuscular Volume 96 fL (80-100); Monocytes # (Auto) 0.1 Thou/mm3 (0.0-0.8); Monocytes % (Auto) 4 % (0-12); Neutrophils # (Auto) 1.1 Thou/mm3 (1.8-7.7); Neutrophils % (Auto) 59 % (37-80); Nucleated Red Blood Cell % 0 /100 WBC (0); RDW Standard Deviation 53.5 fL (35.1-43.9); Red Blood Count 3.66 Miln/mm3 (4.50-5.90)
[2024-04-07 03:34] LABS: White Blood Count 1.8 Thou/mm3 (3.8-10.6)
[2024-04-07 03:37] LABS: Platelet Count 53 Thou/mm3 (140-440)
[2024-04-07 03:51] LABS: Alanine Aminotransferase 758 U/L (10-49); Albumin, Serum 2.5 gm/dL (3.4-4.8); Albumin/Globulin Ratio 1.3 (1.2-2.2); Alkaline Phosphatase 54 U/L (46-116); Anion Gap 24 (7-16); BUN/Creatinine Ratio 16 Ratio (12-20); Bilirubin,Total 0.6 mg/dL (0.3-1.2); Blood Urea Nitrogen 87 mg/dL (9-23); Calcium 7.7 mg/dL (8.3-10.6); Calcium (Corrected) 8.9 mg/dL (8.5-10.1); Chloride 96 mMol/L (98-107); Cholesterol 65 mg/dL (132-200); Creatinine (Component) 5.3 mg/dL (0.6-1.3); Estimated Creatinine Clearance 13.1 mL/min (>60); Globulin 1.9 gm/dL (2.3-3.5); Glucose 106 mg/dL (74-106); HDL Cholesterol < 5 mg/dL (40-60); LDL Cholesterol,Calculated 25 mg/dL (0-130); Magnesium 2.9 mg/dL (1.6-2.6); Osmolality,Calculated 294 (275-295); Sodium 134 mMol/L (136-145); Total Protein 4.4 gm/dL (5.7-8.2); Triglycerides 174 mg/dL (30-150); eGFR 10 See Note
[2024-04-07 03:53] LABS: Phosphorous 15.9 mg/dL (2.4-5.1)
[2024-04-07 03:54] LABS: Potassium 6.9 mMol/L (3.4-5.1)
[2024-04-07 03:56] LABS: Aspartate Amino Transferase 1320 U/L (0-34)
[2024-04-07] MEDS: CALCIUM CARBONATE 600 MG TABLET GT (04:08)
[2024-04-07 04:27] LABS: Base Excess -19 (-3-3); HCO3 13 mEq/L (20-26); Inspired Oxygen, FIO2 21 %; O2 Saturation 98 % (91-98); PCO2 57 mmHg (32.0-48.0); PO2 127 mmHg (83-108)
[2024-04-07] MEDS: SEVELAMER CARBONATE 800 MG TABLET GT (04:29)
[2024-04-07 04:30] LABS: Allen Test Performed/OK; Puncture Site Right Brachial
[2024-04-07 04:31] LABS: pH, Arterial 6.96 (7.35-7.45)
--- NOTE | 2024-04-07 05:32 | PD.RESEVENT ---
Documentation for date of: 04/07/24 Event Note Event Note: Patient's condition continued to deteriorate, electrolyte imbalance worsened with K reaching 7.3, lactic acid level increased to 7, no notable correction in acidosis despite multiple rounds of HCO3 pushes and bicarb drip, AST 1320, ALT 7600, EKG showed rhythm changing to A.Fib, patient's son- Clarke- was contacted and updated regarding patient's multi organ failure and poor prognosis. Son and rest of family came in, after discussion with family in presence of patient's nurse Vickie, son decided to change patient's code status to DNR initially but later decided to proceed with comfort care.
[2024-04-07] MEDS: MORPHINE SULF INJ 10 MG/ML VIAL 2 MG IVP (06:12)
[2024-04-07] MEDS: LORazepam 2 MG/ML VIAL 1 MG IVP (06:13)
[2024-04-07 06:40] LABS: Slide Review Platelets confirmed
--- NOTE | 2024-04-07 06:55 | PD.DPN ---
Documentation for date of: 04/07/24 Pronouncement Note Date and Time of Date of : 04/07/24 Time of : 06:35 PCOD Preliminary cause of : Cardiopulmonary arrest Summary Additional details: Summary, I was called to see for asystole. On exam the patient was unresponsive, no spontaneous movement was observed, patient did not respond to verbal or noxious stimuli. Auscultated absent heart and breath sounds for more than 2 minutes. Peripheral pulses are absent. B/L Pupils are fixed, dilated, and corneal reflex was absent. Patient pronounced at 06:35. Attending Dr. Ramos notified. Family was at bedside. Details: Admitted on 04/06/2024 on 04/07/2024 06:35 CODE STATUS: DNR/DNI Causes of : 1.Cardiopulmonary arrest 2.Acute renal failure 3.Acute hepatic failure. Heavenly Mcneil MD PGY-3 Internal Medicine Resident [facility] Additional Data Confirmation of : no pulse, no respirations, no heart sounds and pupils fixed and dilated Family: at bedside Attending/PCP notified?: Yes Attending physician: Gabriel Ramos MD Was code activated?: No Autopsy requested?: No medical examiner notified?: Yes Organ bank notified?: No Advance directives: No
--- NOTE | 2024-04-07 07:27 | PC.NURSE ---
0725 SPOKE TO ISHA FROM THE [employer] TO START A [employer]ATT[employer] TECHNICIAN CASE PER ISHA A DEPUTY WILL NOT BE COMING ON SCENE AND SHE WILL ALERT THE HOME.
--- NOTE | 2024-04-07 08:14 | DES_ITS ---
<Statement entered by Modesto Otero MD - 04/14/24 01:38> Attending Attestation: Given rapid decline with multiorgan failure, patient transitioned to comfort care overnight appropriately at discretion of family. I was notified of demise by housestaff. Documentation for date of: 04/07/24 Summary Date and Time Date of admission: 04/06/24 10:26 Summary Hospital Course: The patient is a 78-year-old male with a past medical history of COPD, hypertension, hyperlipidemia, diabetes, duodenal ulcer who was brought into the ED by family on 04/06/2024 with complaints of altered mental status and worsening respiration. Per son at bedside, the patient has been sick with upper respiratory infections for the last couple days with associated subjective fever, managed with Tylenol and supportive treatment. He also reports that he has been hydrating him more than usual with water and Gatorade. Two days ago, the patient was said to have had 2 episodes of loose bowel movements as well as reported polyuria, but otherwise clinical status remained unchanged. Today, he was noted to be altered when he woke up, as well as hallucinating. Son tried to feed him, but patient became unresponsive, with breathing function change after which she was brought to the ED. ED course: In the ED, patient was afebrile but hypoxic, saturating 60% on room air after which she was placed on oxime mask but failed to improve and was shortly placed on BiPAP. Initial vital signs -hypotensive with blood pressure 78/55, tachycardic. Labs significant for WBC of 1.2, globin 14.4, PLT 86. Initial ABG, pH 7.24 pCO2 50. Sodium 133 potassium 4.7 chloride 98 bicarb 21.5 BUN 72 creatinine 4.4, EGFR 13, lactic acid 4.1, Pro-Jesus Manuel 224.67. Troponins 2.586 Urinalysis showed a dark yellow urine with 2+ protein and some amorphous crystals. Chest x-ray showed extensive bilateral pneumonia and an EKG showed sinus tachycardia with no arrhythmia or acute ST changes. He was admitted for acute hypoxic respiratory failure, sepsis secondary to bilateral pneumonia, complicated by septic shock. Patient was sedated and intubated and started on pressors as well as antibiotics, breathing treatments. He was persistently hypoxic and intermittently bradycardic, which required atropine to be given. Over the course of hospitalization, repeat blood gases consistently showed respiratory acidosis despite the patient being given bicarb drip. As patient's condition continued to worsen, with increase in creatinine and potassium, signifying endorgan damage, acute renal failure, family was informed of status and prognosis immediate decision to switch patient's CODE STATUS to DNR and eventually, for comfort care. The patient was started on IV morphine and comfortably , time of susan th as pronounced by the physician- 06:35 Family was at bedside and consoled. #Acute encephalopathy #Delirium #Septic shock #Elevated troponins #Acute hypoxic respiratory failure #Bilateral pneumonia #COPD exacerbation #Acute kidney injury #SOFYA on CKD likely #Isotonic hyponatremia #Lactic acidosis #Diarrhea #History of type II DM #Leukopenia #Thrombocytopenia Refer to pronouncement note for additional information. Case was discussed with attending physician, Dr Shanna Courtney MD PGY-1 Disclaimer: This note was dictated by speech recognition. Minor errors in beef pluck trimmer may be present due to voice recognition software. Additional Data Attending physician: Modesto Otero MD Visit Providers Provider Primary care physician: Shayan Lazaro MD Discharge Plan Plan Patient Disposition: Disposition Comment: ICU Prescriptions/Referrals Referrals: Shayan Lazaro MD [Primary Care Provider] - Patient/Caregiver Discharge Instructions Print Language: Yakut
[2024-04-07 23:36] LABS: Hepatitis A Antibody IgM Non Reactive (Non React); Hepatitis B Core Antibody IgM Non Reactive (Non React); Hepatitis B Surface Antigen Non Reactive (Non React); Hepatitis C Antibody Non Reactive (Non React)
[2024-04-11 13:09] LABS: Cocci Serology, IgG Negative (Negative)
== END 2024-04-07 06:35 | disposition expired | DRG 871 ==
LOC: SERX 09:02 → SERHOLD 10:35 → S2SX 15:02
PROVIDERS: Student in an Organized Health Care Education/Training Program; Admitting Provider Internal Medicine Critical Care Medicine; Emergency Provider Emergency Medicine; PCP Family Medicine; Visit Provider Internal Medicine Critical Care Medicine
DX: A41.9 Sepsis, unspecified organism (principal); G93.41 Metabolic encephalopathy; J18.9 Pneumonia, unspecified organism; J96.01 Acute respiratory failure with hypoxia; R65.21 Severe sepsis with septic shock; K72.00 Acute and subacute hepatic failure without coma; F03.A2 Unspecified dementia, mild, with psychotic disturbance; F05 Delirium due to known physiological condition; J44.1 Chronic obstructive pulmonary disease with (acute) exacerbation; J44.0 Chronic obstructive pulmonary disease with (acute) lower respiratory infection; E87.29 Other acidosis; N17.9 Acute kidney failure, unspecified; E87.1 Hypo-osmolality and hyponatremia; I46.8 Cardiac arrest due to other underlying condition; I12.9 Hypertensive chronic kidney disease with stage 1 through stage 4 chronic kidney disease, or unspecified chronic kidney disease; N18.9 Chronic kidney disease, unspecified; E11.22 Type 2 diabetes mellitus with diabetic chronic kidney disease; I48.91 Unspecified atrial fibrillation; D69.6 Thrombocytopenia, unspecified; R57.0 Cardiogenic shock; F17.210 Nicotine dependence, cigarettes, uncomplicated; R79.89 Other specified abnormal findings of blood chemistry; E78.5 Hyperlipidemia, unspecified; Z66 Do not resuscitate; Z79.84 Long term (current) use of oral hypoglycemic drugs; Z51.5 Encounter for palliative care; Z87.11 Personal history of peptic ulcer disease
CPT/HCPCS: 36415; 36600; 71045; 80053; 80061; 80069; 80074; 81001; 82803; 83036; 83605; 83735; 83880; 84100; 84132; 84145; 84443; 84484; 85025; 85610; 85730; 86331; 86635; 87040; 87077; 87081; 87086; 87186; 87205; 87400; 87493; 87502; 87634; 87811; 93005; 94002; 94003; 94644; 94660; 96361; 96365; 96367; 96374; 96375; 99285; J0171; J0456; J0461; J0612; J0696; J1815; J2060; J2250; J2270; J2470; J2543; J2598; J2919; J3010; J3372; J3475; J3490; J7030; J7040; J7050; J7060; J7120; A9270